=== PATIENT | male | born 1945 | race Caucasian/White ===

== ENCOUNTER 2016-07-28 11:27 | Inpatient (IN) ==
[2016-07-28] MEDS ORDERED: SODIUM CHLORIDE 0.9% 500 ML IV STA (12:30)
[2016-07-28] MEDS ORDERED: PANTOPRAZOLE 40 MG VIAL IV STA (12:30)
[2016-07-28 13:20] LABS: Basophils % 0.1 % (0.0-0.8); Eosinophils % 0.1 % (0.00-10.9); Hematocrit 38.2 VOL% (42.0-52.0); Immature Granulocytes % 0.5 %; Immature Granulocytes Absolute 0.04 #; Lymphocytes # 1.1 10*3/uL (1.4-4.0); Lymphocytes % 13.2 % (21.2-54.2); Mean Corpuscular Hemoglobin 33 PG (27-34); Mean Corpuscular Volume 95.5 FL (87-102); Mean Platelet Volume 9.2 FL (9.6-12.0); Monocytes % 13.1 % (1.7-12.7); Neutrophils # 5.8 10*3/uL (1.4-7.4); Platelet Count 161 T/CUMM (130-400); Red Cell Distribution Width 15.9 % (9.3-17.3); White Blood Count 7.9 T/CUMM (4-12)
[2016-07-28] MEDS ORDERED: PANTOPRAZOLE 40 MG VIAL IV ONE (13:33)
[2016-07-28 13:37] LABS: PT Patient Result 10.7 SECS
[2016-07-28 13:48] LABS: Albumin 3.6 G/DL (3.4-5.0); Bilirubin,Total 1.1 MG/DL (0.2-1.0); Calcium 9.2 MG/DL (8.5-10.1); Magnesium 2.6 MG/DL (1.8-2.4); Osmolality,Calculated 281.4 MOS/KG (273-304); Potassium 4.2 MMOL/L (3.5-5.1); Total Protein 7.2 G/DL (6.4-8.3)
--- NOTE | 2016-07-28 14:39 | Emergency Department Note ---
Adlaid Feng Hilary, am scribing for, and in the presence of, Maged Jimenez MD 12:24. Barbara Feng Phillip K, MD, personally performed the services described in this documentation, ascribed by iNda Cordoba in my presence, and it is both accurate and complete 439 . Arrival - Arrival Chief Complaint: GI Bleed/Rectal Stated Complaint: rectal bleeding ED Nursing Triage Note: pt was in the shower this am when he saw bright red bleeding from rectum Mode of Arrival: Ambulatory Limitations: No Limitations Source: Patient, RN Notes Reviewed - History of Present Illness HPI Narrative: Pt is a 71 y/o male presenting to the ED with c/o rectum bleeding which onset this AM. Pt states he was in the shower this morning when he noticed blood from his rectum after using his shower spray. Pt confirms bright red blood rectum bleeding but denies pain, hematochezia, diarrhea or abdominal pain. Pt has a PMHx of HTN, Hemorrhoids, polyps, Hep A, Liver Mets, Gallstones, Gastrointestinal CA, Colon CA. No other complaints or problems stated in the ED and pt denies ever having these symptoms before. Onset (ago): hour(s) Allergies/Adverse Reactions: Allergies Allergy/AdvReac Type Severity Reaction Status Date / Time No Known Allergies Allergy Verified 11/23/14 16:12 Home Medications: Home Medications Medication Instructions Recorded Confirmed Type Aspirin [Ecotrin] 325 mg PO DAILY 05/29/15 07/28/16 History Metoprolol Tartrate 25 mg PO DAILY 05/29/15 07/28/16 History Multivitamin [One Daily] 1 tablet PO DAILY 05/29/15 07/28/16 History Magnesium Chloride [Slow Mag] 64 mg PO DAILY 02/11/16 07/28/16 History Review of System - Review of System 12 point system: reviewed and no additional remarkable complaints except as stated - Review of System Constitutional: Absent: fever Gastrointestinal: Present: other (rectal bleeding). 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) No history of: Diabetes Mellitus (IDDM), Diabetes Mellitus (NIDDM), Dyslipidemia, Thyroid Disorder, Endocrine Cancer, Endocrine Problems Rheumatology: No history of;: Psoriasis, Rheumatoid Arthritis, Sjogrens, Systemic Lupus Erythematosus Respiratory: History of: Asthma ( CHILD), Bronchitis ( CHILD), Obstructive Sleep Apnea (C PAP), Pneumonia (May 2015) No history of: COPD, Intubation, Pulmonary Embolism, Pulmonary Hypertension, Lung Cancer, Respiratory Problems Renal: No history of: Renal (Kidney) Cancer, Dialysis, Renal Failure, Renal Problems Genitourinary: History of: Bladder Problem (STRETCHING BLADDER NECK), Prostate Problems (BPH) No history of: Kidney Stones, Recurring Urinary Tract Infections, Genitourinary Cancer, Problems Gastrointestinal: History of: Hemorrhoids, Hepatitis (Hep A 1963), Liver Problems (Liver Mets), Polyps (Few on colonoscopys), Gastrointestinal Cancer ( 2005), GI Problems (GALL STONES, sept 3- bile leaking again then set up for procedure 11/13/15) No history of: Bowel Obstruction, Clostridium Difficile, Crohn's Disease, Diverticulitis/ Diverticulosis, Esophageal Varices, GERD, Gastrointestinal Bleed , Hematochezia, Pancreatitis, Ulcerative Colitis Musculoskeletal: No history of: Amputation Hematology: No history of: Blood Transfusion Reaction Reproductive: No histroy: Penile Disorder, Sexually Transmitted Disease, Reproductive Cancer, Reproductive Problems Other: History of: Cancer (Colon CA with Liver Mets-Chemo Dr. Petit) No history of: Anesthesia Reactions, Anaphylaxis, Eczema, HIV, Malignant Hyperthermia, MRSA, Vancomycin-Resistant Enterococci, Skin Problems, Miscellaneous Medical Problems - Surgical History Cardiac Surgeries: Patient Denies: Femoral-Popliteal Bypass Graft, Cardiac Catheterization, Cardiac Surgery, Carotid Endarterectomy, Internal Defibrillator, Vascular Access Devices (12/26/15 Sched for Mediport Placement) Thoracic Surgeries: Patient denies;: Kidney (Renal Surgery), Lithotripsy, Nephrectomy, Organ Transplant, Lobectomy Neurologic Surgeries: Patient denies: Neurologic Surgery HEENT Surgeries: Surgical HX of: Tonsilectomy & Adenoidectomy (1953) Patient denies: Carotid Endarterectomy, Eye Surgery, Thyroid Surgery Abdominal Surgeries: Surgical HX of: Abdominal Surgery (RECTAL ADRENAL SURGERY, lower anterior resection 2005), Appendectomy (1966), Cholecystectomy (OPEN), Colonoscopy, EGD Patient denies: Gastric Bypass Surgery, Hernia Repair, Splenectomy Reproductive Surgeries: Surgical HX of;: Prostate Surgery (TRANS URETHRA 2015), Vasectomy (1975) Patient denies;: Breast Surgery, Cystoscopy, Genitourinary Surgery Orthopedic Surgeries: Patient denies;: Implanted Devices, Orthopedic Surgery, Spinal Surgery, Total Hip Replacement, Total Knee Replacement - Family History Family History: Reports;: Family Cancer (PARENTS), Family Heart Disease ( MATERNAL GRANDFATHER) Denies;: Family Anesthesia Reaction, Family Hypertension, Family Psychiatric Problems, Family Stroke - Social History Smoking Status: Former smoker Frequency of Alcohol Use: None Type of Drug Use: None Exam Vital Signs: Vital Signs Temperature 97.6 F 07/28/16 11:32 Pulse Rate 73 07/28/16 11:32 Respiratory Rate 18 07/28/16 11:32 Blood Pressure 150/93 07/28/16 11:32 O2 Sat by Pulse Oximetry 96 07/28/16 11:32 - General General appearance: alert, in no apparent distress - Head Head exam: Present: atraumatic, normocephalic - Eye Eye exam: Present: normal appearance, PERRL, EOMI - ENT ENT exam: Present: mucous membranes moist, TM's normal bilaterally. Absent: mucous membranes dry - Neck Neck exam: Present: full ROM, trachea midline. Absent: tenderness - Chest Chest inspection: Present: symmetric chest wall rise. Absent: tenderness - Respiratory Respiratory exam: Present: normal lung sounds bilaterally. Absent: respiratory distress - Cardiovascular Cardiovascular exam: Present: regular rate, normal rhythm, normal heart sounds. Absent: murmur, rubs, gallop - Abdominal Exam Abdominal exam: Present: soft, normal bowel sounds. Absent: distention, tenderness - Rectal Exam Rectal exam: Present: heme (+) stool - Extremities Exam Extremities exam: Present: full ROM. Absent: tenderness, pedal edema - Back Exam Back exam: Present: full ROM. Absent: tenderness - Neurological Exam Neurological exam: Present: alert, oriented X3, CN II-XII intact, motor sensory deficit - Psychiatric Psychiatric exam: Present: normal affect, normal mood - Skin Skin exam: Present: warm, dry, intact, normal color. Absent: rash Course Course Narrative: Patient discussed with Dr. Damaso Bear. We will admit to the hospitalist and they will consult. We will need to obtain serial H&H's. Results - Labs CBC & BMP: 07/28/16 13:13 07/28/16 13:13 Lab Results: I have reviewed the patients labs Labs: Laboratory Tests 07/28/16 13:13 WBC 7.9 RBC 4.00 Hgb 13.0 L Hct 38.2 L MPV 9.2 L Lymph % (Auto) 13.2 L [place] % (Auto) 13.1 H Lymph # (Auto) 1.1 L [place] # (Auto) 1.0 H Laboratory Tests 07/28/16 13:13 Sodium 140 Potassium 4.2 Chloride 103 Carbon Dioxide 27 BUN 20 H Glucose 107 H Magnesium 2.6 H Total Bilirubin 1.10 H Alkaline Phosphatase 163 H Globulin 3.6 H Albumin/Globulin Ratio 1.0 L Disposition Clinical Impression: Rectal bleeding, Metastatic colon cancer Case discussed with: patient, patient's family Disposition: Still a Patient Condition: Guarded Additional Instructions: Admit for further workup.
--- NOTE | 2016-07-28 15:34 | EKG Report ---
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
--- NOTE | 2016-07-28 15:46 | Hospitalist History & Physical ---
Assessment and Plan (1) Hematochezia Status: Acute Assessment and plan: Differential is huge for patient with painless hematochezia including diverticulosis and hemorrhoids or recurrence of colon cancer. will watch H&H consult Dr. Flaco Bear Current Visit: Yes (2) Anemia Status: Acute Assessment and plan: Stable hemoglobin hematocrit but will keep monitoring Current Visit: Yes (3) Edema Status: Acute Assessment and plan: Patient has edema bilateral lower extremities with normal albumin level I will get a venous Dopplers due to his history of cancer there is no dyspnea reported no chest pain Current Visit: Yes History of Present Illness History of present illness: Mr. Kiser is a 71 year old male with history of hypertension and colorectal cancer. He had a 6 cm colon resection with radiation daily and chemotherapy in 2005 when it was initially diagnosed. He had a recurrence in 2011 with the right adrenal metastasis. Last year he developed jaundice and at that time ERCP and sphincterotomy and biliary stent placement. He was at that time diagnosed to have liver metastasis he has been on chemotherapy. Patient has been followed by Dr. Petit in his visual aid expert Dr. Flaco Bear.This morning patient noted rectal bleeding while he was in shower there is no associated abdominal or rectal pain. There is no associated nausea vomiting. He does report some loose stool recently no associated fever. He was seen in the ER and noted to have a stable hemodynamics with blood pressure 150/93 pulse 70/min. His hemoglobin is 13 hematocrit 38.2 which is stable compared to one in April 2016. We were consulted by the ER for admission and he will be aadmitted to the [facility] floor. Home Medications Medication Instructions Recorded Confirmed Type Aspirin [Ecotrin] 325 mg PO DAILY 05/29/15 07/28/16 History Metoprolol Tartrate 25 mg PO DAILY 05/29/15 07/28/16 History Multivitamin [One Daily] 1 tablet PO DAILY 05/29/15 07/28/16 History Magnesium Chloride [Slow Mag] 64 mg PO DAILY 02/11/16 07/28/16 History Allergies Allergy/AdvReac Type Severity Reaction Status Date / Time No Known Allergies Allergy Verified 11/23/14 16:12 Medical,Surgical,& Family Hx - Medical History Cardio: History of: Cerebrovascular Disease (HX [address] SCHERER), Hypertension No history of: Aneurysm, Cardiac Dysrhythmia, Congenital Heart Disease, CHF, CAD, [place], Pacemaker, PVD, Valvular Heart Disease, Cardiovascular Problems Neurology: History of: Migraine (occular), Vertigo No history of: Seizures HEENT: History of: Dental Problems (BRIDGE FRONT) No history of: Ear Problem, Eye Problem, Glaucoma, Oral Cancer, HEENT Problems Endocrine: History of: 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) No history of: Diabetes Mellitus (IDDM), Diabetes Mellitus (NIDDM), Dyslipidemia, Thyroid Disorder, Endocrine Cancer, Endocrine Problems Rheumatology: No history of;: Psoriasis, Rheumatoid Arthritis, Sjogrens, Systemic Lupus Erythematosus Respiratory: History of: Asthma ( CHILD), Bronchitis ( CHILD), Obstructive Sleep Apnea (C PAP), Pneumonia (May 2015) No history of: COPD, Intubation, Pulmonary Embolism, Pulmonary Hypertension, Lung Cancer, Respiratory Problems Renal: No history of: Renal (Kidney) Cancer, Dialysis, Renal Failure, Renal Problems Genitourinary: History of: Bladder Problem (STRETCHING BLADDER NECK), Prostate Problems (BPH) No history of: Kidney Stones, Recurring Urinary Tract Infections, Genitourinary Cancer, Problems Gastrointestinal: History of: Hemorrhoids, Hepatitis (Hep A 1963), Liver Problems (Liver Mets), Polyps (Few on colonoscopys), Gastrointestinal Cancer ( 2005), GI Problems (GALL STONES, sept 3- bile leaking again then set up for procedure 11/13/15) No history of: Bowel Obstruction, Clostridium Difficile, Crohn's Disease, Diverticulitis/ Diverticulosis, Esophageal Varices, GERD, Gastrointestinal Bleed , Hematochezia, Pancreatitis, Ulcerative Colitis Musculoskeletal: No history of: Amputation Hematology: No history of: Blood Transfusion Reaction Reproductive: No histroy: Penile Disorder, Sexually Transmitted Disease, Reproductive Cancer, Reproductive Problems Other: History of: Cancer (Colon CA with Liver Mets-Chemo Dr. Petit) No history of: Anesthesia Reactions, Anaphylaxis, Eczema, HIV, Malignant Hyperthermia, MRSA, Vancomycin-Resistant Enterococci, Skin Problems, Miscellaneous Medical Problems - Surgical History Cardiac Surgeries: Patient Denies: Femoral-Popliteal Bypass Graft, Cardiac Catheterization, Cardiac Surgery, Carotid Endarterectomy, Internal Defibrillator, Vascular Access Devices (12/26/15 Sched for Mediport Placement) Thoracic Surgeries: Patient denies;: Kidney (Renal Surgery), Lithotripsy, Nephrectomy, Organ Transplant, Lobectomy Neurologic Surgeries: Patient denies: Neurologic Surgery HEENT Surgeries: Surgical HX of: Tonsilectomy & Adenoidectomy (1953) Patient denies: Carotid Endarterectomy, Eye Surgery, Thyroid Surgery Abdominal Surgeries: Surgical HX of: Abdominal Surgery (RECTAL ADRENAL SURGERY, lower anterior resection 2005), Appendectomy (1966), Cholecystectomy (OPEN), Colonoscopy, EGD Patient denies: Gastric Bypass Surgery, Hernia Repair, Splenectomy Reproductive Surgeries: Surgical HX of;: Prostate Surgery (TRANS URETHRA 2015), Vasectomy (1975) Patient denies;: Breast Surgery, Cystoscopy, Genitourinary Surgery Orthopedic Surgeries: Patient denies;: Implanted Devices, Orthopedic Surgery, Spinal Surgery, Total Hip Replacement, Total Knee Replacement - Family History Family History: Reports;: Family Cancer (PARENTS), Family Heart Disease ( MATERNAL GRANDFATHER) Denies;: Family Anesthesia Reaction, Family Hypertension, Family Psychiatric Problems, Family Stroke - Social History Smoking Status: Former smoker Frequency of Alcohol Use: None Type of Drug Use: None Review of systems: Comprehensive review of system was done and negative unless mentioned in the HPI Exam - Constitutional Vitals: Period Temp Pulse Resp BP Sys/Diamond Pulse Ox Last 24 Hr 97.6 F 73 18 150/93 96 General appearance: no acute distress, over weight - Head Head exam: Present: normal inspection, normocephalic, atraumatic - Eye Eye exam: Present: EOMI. Absent: conjunctival injection Pupils: Present: GODWIN, normal accommodation - Neck Neck exam: Present: normal inspection, other (Supple) - Respiratory Respiratory exam: Present: clear to auscultation bilaterally. Absent: rhonchi, stridor - Cardiovascular Cardiovascular exam: Present: regular rate and rhythm. Absent: tachycardia - GI/Abdominal GI/Abdominal exam: Present: normal bowel sounds, soft (Obese). Absent: distended, mass, tenderness - Extremities Exam Extremities exam: Present: normal inspection, edema (Mild edema) - Neurological Exam Neurological exam: Present: alert, oriented X3 - Skin Skin exam: Present: normal color Results - Labs CBC & BMP: 07/28/16 13:13 07/28/16 13:13 Lab Results: I have reviewed the past 24 hour labs
[2016-07-28] MEDS ORDERED: ONDANSETRON 4 MG/2 ML VIAL IV PRN (15:55)
[2016-07-28] MEDS ORDERED: ACETAMINOPHEN 325 MG TABLET PO PRN (15:55)
[2016-07-28] MEDS ORDERED: ZALEPLON 5 MG CAPSULE PO PRN (15:55)
--- NOTE | 2016-07-28 17:20 | Ultrasound Report ---
US venous doppler LE BI Indication: Lower extremity swelling and pain. Comparison: None. Technique: Using a transcutaneous probe, grayscale, spectral Doppler, and color Doppler images of the bilateral lower extremity venous structures were captured and stored. Grayscale images prior to and following compression were obtained. Interrogated venous structures include the bilateral common femoral vein, superficial femoral vein (proximal, mid, and distal), and popliteal vein. Findings: There is no evidence of thrombus within the interrogated venous structures. the interrogated venous segments demonstrate presence of both color flow and spectral flow. Impression: 1. No evidence of venous thrombosis. 07/28/2016 5:17 PM PROCEDURE INTERPRETED AT [facility] DEPARTMENT OF RADIOLOGY Final Report Signed by: Dr. Ji Garibay
[2016-07-28] MEDS: DEXTROSE 5% NACL 0.45% 1,000 ML IV SCH (17:24)
[2016-07-29] MEDS: DEXTROSE 5% NACL 0.45% 1,000 ML IV SCH ×2 (06:09→19:45)
[2016-07-29 06:24] LABS: Eosinophils # 0.1 10*3/uL (0.0-0.87); Eosinophils % 1.8 % (0.00-10.9); Hematocrit 34.7 VOL% (42.0-52.0); Hemoglobin 11.7 GM/DL (14.0-18.0); Immature Granulocytes % 0.3 %; Immature Granulocytes Absolute 0.01 #; Lymphocytes # 1.1 10*3/uL (1.4-4.0); Lymphocytes % 26.4 % (21.2-54.2); Mean Corpuscular HGB Conc 33.7 GM/DL (32-36); Mean Corpuscular Hemoglobin 32 PG (27-34); Mean Corpuscular Volume 95.9 FL (87-102); Mean Platelet Volume 9.4 FL (9.6-12.0); Monocytes # 0.5 10*3/uL (0.11-0.8); Monocytes % 11.3 % (1.7-12.7); Neutrophils # 2.4 10*3/uL (1.4-7.4); Neutrophils % 59.2 % (38.7-73.9); Platelet Count 139 T/CUMM (130-400); Red Blood Count 3.62 MC/CUMM (3.8-5.5); Red Cell Distribution Width 15.9 % (9.3-17.3)
--- NOTE | 2016-07-29 08:59 | Oncology History&Physical ---
History of Present Illness History of present illness: Mr. Kiser is a 71 year old male that I have been following and who I last saw on July 22, 2016. He has a history of metastatic colorectal cancer that was initially diagnosed August 11, 2005. It recurred October 06, 2011 and he has been treated by me since that time. He was also seen at [facility]. He had a PET scan that was done there on December 18, 2015 that demonstrated multiple areas of lung and liver involvement. However, he had a repeat PET scan done here on July 20, 2016 that is negative for any evidence of metastatic disease presently. His colon cancer is K-elise wild type. He would qualify for targeted therapy, possibly with irinotecan and cetuximab or Panitumumab, nivolumab and Pembrolizumab. He was admitted with relatively heavy bright red rectal bleeding. He had not reported this within the last few months. He is currently on Folfiri. He was actually given his last dose of chemotherapy beginning July 27 and it actually completed this morning. We are attaching my last office progress note to his chart. He has stopped bleeding at this point. Lab work on the day of admission included a white cell count of 7900 with a hemoglobin of 13.0 and a platelet count of 161,000. Blood work this morning included a white cell count of 4000 with a hemoglobin of 11.7 and a platelet count of 139,000. He had a normal INR on admission. His comprehensive metabolic profile on admission was very nearly normal with a slight elevation of the total bilirubin to 1.1 with an alkaline phosphatase 163. He is fully oriented and alert and does not appear to be in any acute distress this morning. I agree with consulting Dr. Bear and considering the patient for colonoscopy since we need to know if he has any lesions within the colon that might be actively bleeding or if this could be a bleeding source of some other type. Home Medications Medication Instructions Recorded Confirmed Type Aspirin [Ecotrin] 325 mg PO DAILY 05/29/15 07/28/16 History Metoprolol Tartrate 25 mg PO DAILY 05/29/15 07/28/16 History Multivitamin [One Daily] 1 tablet PO DAILY 05/29/15 07/28/16 History Magnesium Chloride [Slow Mag] 64 mg PO DAILY 02/11/16 07/28/16 History Allergies Allergy/AdvReac Type Severity Reaction Status Date / Time No Known Allergies Allergy Verified 11/23/14 16:12 Medical,Surgical,& Family Hx - Medical History Cardio: History of: Cerebrovascular Disease (HX [address] SCHERER), Hypertension No history of: Aneurysm, Cardiac Dysrhythmia, Congenital Heart Disease, CHF, CAD, [place], Pacemaker, PVD, Valvular Heart Disease, Cardiovascular Problems Neurology: History of: Migraine (occular), Vertigo No history of: Seizures HEENT: History of: Dental Problems (BRIDGE FRONT) No history of: Ear Problem, Eye Problem, Glaucoma, Oral Cancer, HEENT Problems Endocrine: History of: 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) No history of: Diabetes Mellitus (IDDM), Diabetes Mellitus (NIDDM), Dyslipidemia, Thyroid Disorder, Endocrine Cancer, Endocrine Problems Rheumatology: No history of;: Psoriasis, Rheumatoid Arthritis, Sjogrens, Systemic Lupus Erythematosus Respiratory: History of: Asthma ( CHILD), Bronchitis ( CHILD), Obstructive Sleep Apnea (C PAP), Pneumonia (May 2015) No history of: COPD, Intubation, Pulmonary Embolism, Pulmonary Hypertension, Lung Cancer, Respiratory Problems Renal: No history of: Renal (Kidney) Cancer, Dialysis, Renal Failure, Renal Problems Genitourinary: History of: Bladder Problem (STRETCHING BLADDER NECK), Prostate Problems (BPH) No history of: Kidney Stones, Recurring Urinary Tract Infections, Genitourinary Cancer, Problems Gastrointestinal: History of: Hemorrhoids, Hepatitis (Hep A 1963), Liver Problems (Liver Mets), Polyps (Few on colonoscopys), Gastrointestinal Cancer ( 2005), GI Problems (GALL STONES, sept 3- bile leaking again then set up for procedure 11/13/15) No history of: Bowel Obstruction, Clostridium Difficile, Crohn's Disease, Diverticulitis/ Diverticulosis, Esophageal Varices, GERD, Gastrointestinal Bleed , Hematochezia, Pancreatitis, Ulcerative Colitis Musculoskeletal: No history of: Amputation Hematology: No history of: Blood Transfusion Reaction Reproductive: No histroy: Penile Disorder, Sexually Transmitted Disease, Reproductive Cancer, Reproductive Problems Other: History of: Cancer (Colon CA with Liver Mets-Chemo Dr. Petit) No history of: Anesthesia Reactions, Anaphylaxis, Eczema, HIV, Malignant Hyperthermia, MRSA, Vancomycin-Resistant Enterococci, Skin Problems, Miscellaneous Medical Problems - Surgical History Cardiac Surgeries: Patient Denies: Femoral-Popliteal Bypass Graft, Cardiac Catheterization, Cardiac Surgery, Carotid Endarterectomy, Internal Defibrillator, Vascular Access Devices (12/26/15 Sched for Mediport Placement) Thoracic Surgeries: Patient denies;: Kidney (Renal Surgery), Lithotripsy, Nephrectomy, Organ Transplant, Lobectomy Neurologic Surgeries: Patient denies: Neurologic Surgery HEENT Surgeries: Surgical HX of: Tonsilectomy & Adenoidectomy (1953) Patient denies: Carotid Endarterectomy, Eye Surgery, Thyroid Surgery Abdominal Surgeries: Surgical HX of: Abdominal Surgery (RECTAL ADRENAL SURGERY, lower anterior resection 2005), Appendectomy (1966), Cholecystectomy (OPEN), Colonoscopy, EGD Patient denies: Gastric Bypass Surgery, Hernia Repair, Splenectomy Reproductive Surgeries: Surgical HX of;: Prostate Surgery (TRANS URETHRA 2015), Vasectomy (1975) Patient denies;: Breast Surgery, Cystoscopy, Genitourinary Surgery Orthopedic Surgeries: Patient denies;: Implanted Devices, Orthopedic Surgery, Spinal Surgery, Total Hip Replacement, Total Knee Replacement - Family History Family History: Reports;: Family Cancer (PARENTS), Family Heart Disease ( MATERNAL GRANDFATHER) Denies;: Family Anesthesia Reaction, Family Hypertension, Family Psychiatric Problems, Family Stroke - Social History Smoking Status: Former smoker Frequency of Alcohol Use: None Type of Drug Use: None Exam - Constitutional Vitals: Period Temp Pulse Resp BP Sys/Diamond Pulse Ox Last 24 Hr 97.6 F-99.4 F 59-69 18-20 106-155/55-79 94-96 Results - Labs CBC & BMP: 07/29/16 05:25 07/28/16 13:13 Quality Measures - VTE Contraindication to Pharmacological VTE Prophylaxis: Active Bleeding
[2016-07-29] MEDS: PANTOPRAZOLE 40 MG TABLET PO SCH (10:31)
[2016-07-29] MEDS: METOPROLOL TARTRATE 25 MG TABLET PO SCH (10:31)
[2016-07-29] MEDS: MULTIVITAMIN (CENTRUM) TABLET PO SCH (10:31)
--- NOTE | 2016-07-29 10:55 | Gastrointestinal Consult Note ---
<SusantrinhAlyssa Florinda - Last Filed: 07/29/16 10:46> Assessment and Plan (1) Lower GI bleed Status: Acute Assessment and plan: 07/29-sudden onset bright red rectal bleeding on yesterday without associated symptoms. Hemoglobin down slightly from 13 on admission to 11.7 today. No further bleeding since yesterday. History of colon cancer with resection in 2005, adrenalectomy in 2011, followed by anal fissure closure in 2011. Unable to locate recent colonoscopy records. Change to clear liquid diet. Monitor serial H&H. Plan an addendum to follow by Dr. Bear. Current Visit: Yes History of Present Illness Chief complaint: Rectal bleeding History of present illness: Mr. Kiser is a 71 year old male who presented to the hospital with onset of bright red rectal bleeding. Patient states that he was in his usual state of health until yesterday morning. He states that he was in the shower yesterday morning when he had a sudden onset of bright red rectal bleeding. He states that he felt like it was a moderate amount of blood initially. Shortly after this he had a bowel movement and he reports of bright red blood mixed in with the stool at that time. He states later that afternoon he had another bowel movement with a very small amount of blood noted as well and reports the stool to look somewhat dark. Patient denies any abdominal pain associated with this other than some mild cramping last night. Denies any other associated symptoms with this including nausea or vomiting. Patient presented to the emergency room for further evaluation. He has a history of colon cancer initially diagnosed in 2005 which was resected and he underwent chemotherapy. 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 Brunson. He also underwent a sphincterotomy for anal fissure in 2011. He has been followed by Dr. Petit since this time. He is currently on chemotherapy treatment which he just completed an infusion this morning. He is also followed at [facility]. He had a PET scan done 2015 which showed liver and lung metastasis however a recent PET scan several weeks ago showed no evidence of metastasis at this time. His hemoglobin on July 22 Dr. Petit's office was noted to be 12.8. On admission this was 13 and is trended downward today at 11.7. He denies no further bleeding since admission. He denies any upper GI symptoms including nausea, vomiting, epigastric pain, dysphagia, or GERD. Denies any NSAID use. Denies any recent weight loss, fever, chills or night sweats. He also has a history of 4 ERCPs over the last year for a bile leak with stent replacement however the stent was removed in May of this year with no further evidence of significant stricture or bile leak. Patient states that he has had fairly recent repeat colonoscopy in the last year however unable to find any information in our facility database regarding this. Home Medications Medication Instructions Recorded Confirmed Type Aspirin [Ecotrin] 325 mg PO DAILY 05/29/15 07/28/16 History Metoprolol Tartrate 25 mg PO DAILY 05/29/15 07/28/16 History Multivitamin [One Daily] 1 tablet PO DAILY 05/29/15 07/28/16 History Magnesium Chloride [Slow Mag] 64 mg PO DAILY 02/11/16 07/28/16 History Allergies Allergy/AdvReac Type Severity Reaction Status Date / Time No Known Allergies Allergy Verified 11/23/14 16:12 Medical,Surgical,& Family Hx - Medical History Cardio: History of: Cerebrovascular Disease (HX [address] SCHERER), Hypertension No history of: Aneurysm, Cardiac Dysrhythmia, Congenital Heart Disease, CHF, CAD, [place], Pacemaker, PVD, Valvular Heart Disease, Cardiovascular Problems Neurology: History of: Migraine (occular), Vertigo No history of: Seizures HEENT: History of: Dental Problems (BRIDGE FRONT) No history of: Ear Problem, Eye Problem, Glaucoma, Oral Cancer, HEENT Problems Endocrine: History of: 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) No history of: Diabetes Mellitus (IDDM), Diabetes Mellitus (NIDDM), Dyslipidemia, Thyroid Disorder, Endocrine Cancer, Endocrine Problems Rheumatology: No history of;: Psoriasis, Rheumatoid Arthritis, Sjogrens, Systemic Lupus Erythematosus Respiratory: History of: Asthma ( CHILD), Bronchitis ( CHILD), Obstructive Sleep Apnea (C PAP), Pneumonia (May 2015) No history of: COPD, Intubation, Pulmonary Embolism, Pulmonary Hypertension, Lung Cancer, Respiratory Problems Renal: No history of: Renal (Kidney) Cancer, Dialysis, Renal Failure, Renal Problems Genitourinary: History of: Bladder Problem (STRETCHING BLADDER NECK), Prostate Problems (BPH) No history of: Kidney Stones, Recurring Urinary Tract Infections, Genitourinary Cancer, Problems Gastrointestinal: History of: Hemorrhoids, Hepatitis (Hep A 1963), Liver Problems (Liver Mets), Polyps (Few on colonoscopys), Gastrointestinal Cancer ( 2005), GI Problems (GALL STONES, sept 3- bile leaking again then set up for procedure 11/13/15) No history of: Bowel Obstruction, Clostridium Difficile, Crohn's Disease, Diverticulitis/ Diverticulosis, Esophageal Varices, GERD, Gastrointestinal Bleed , Hematochezia, Pancreatitis, Ulcerative Colitis Musculoskeletal: No history of: Amputation Hematology: No history of: Blood Transfusion Reaction Reproductive: No histroy: Penile Disorder, Sexually Transmitted Disease, Reproductive Cancer, Reproductive Problems Other: History of: Cancer (Colon CA with Liver Mets-Chemo Dr. Petit) No history of: Anesthesia Reactions, Anaphylaxis, Eczema, HIV, Malignant Hyperthermia, MRSA, Vancomycin-Resistant Enterococci, Skin Problems, Miscellaneous Medical Problems - Surgical History Cardiac Surgeries: Patient Denies: Femoral-Popliteal Bypass Graft, Cardiac Catheterization, Cardiac Surgery, Carotid Endarterectomy, Internal Defibrillator, Vascular Access Devices (12/26/15 Sched for Mediport Placement) Thoracic Surgeries: Patient denies;: Kidney (Renal Surgery), Lithotripsy, Nephrectomy, Organ Transplant, Lobectomy Neurologic Surgeries: Patient denies: Neurologic Surgery HEENT Surgeries: Surgical HX of: Tonsilectomy & Adenoidectomy (1953) Patient denies: Carotid Endarterectomy, Eye Surgery, Thyroid Surgery Abdominal Surgeries: Surgical HX of: Abdominal Surgery (RECTAL ADRENAL SURGERY, lower anterior resection 2005), Appendectomy (1966), Cholecystectomy (OPEN), Colonoscopy, EGD Patient denies: Gastric Bypass Surgery, Hernia Repair, Splenectomy Reproductive Surgeries: Surgical HX of;: Prostate Surgery (TRANS URETHRA 2015), Vasectomy (1975) Patient denies;: Breast Surgery, Cystoscopy, Genitourinary Surgery Orthopedic Surgeries: Patient denies;: Implanted Devices, Orthopedic Surgery, Spinal Surgery, Total Hip Replacement, Total Knee Replacement - Family History Family History: Reports;: Family Cancer (PARENTS), Family Heart Disease ( MATERNAL GRANDFATHER) Denies;: Family Anesthesia Reaction, Family Hypertension, Family Psychiatric Problems, Family Stroke - Social History Smoking Status: Former smoker Frequency of Alcohol Use: None Type of Drug Use: None 12 point system: reviewed and no additional remarkable complaints except as stated - Constitutional Constitutional: Present: as per HPI - EENT Eyes: Present: as per HPI Ears: Present: as per HPI Nose, mouth and throat: Present: as per HPI - Cardiovascular Cardiovascular: Present: as per HPI - Respiratory Respiratory: Present: as per HPI - Gastrointestinal Gastrointestinal: Present: as per HPI, hematochezia - Genitourinary Genitourinary: Present: as per HPI - Musculoskeletal Musculoskeletal: Present: as per HPI - Neurological Neurological: Present: as per HPI - Psychiatric Psychiatric: Present: as per HPI - Endocrine Endocrine: Present: as per HPI - Hematologic/Lymphatic Hematologic/Lymphatic: Present: as per HPI Exam - Constitutional Vitals: Period Temp Pulse Resp BP Sys/Diamond Pulse Ox Last 24 Hr 97.6 F-99.4 F 59-69 18-20 106-155/55-79 94-96 General appearance: no acute distress, over weight - Head Head exam: Present: normal inspection, normocephalic - Eye Eye exam: Present: other (Lids and conjunctive are unremarkable). Absent: scleral icterus - ENT ENT exam: Present: normal exam, normal oropharynx - Neck Neck exam: Present: normal inspection - Respiratory Respiratory exam: Present: clear to auscultation bilaterally. Absent: rales, rhonchi, wheezes - Cardiovascular Cardiovascular exam: Present: regular rate and rhythm. Absent: diastolic murmur , JVD, systolic murmur - GI/Abdominal GI/Abdominal exam: Present: normal bowel sounds, soft. Absent: ascites, distended, mass, organomegaly, tenderness - Extremities Exam Extremities exam: Present: normal inspection, full ROM - Back Exam Back exam: Present: normal inspection - Neurological Exam Neurological exam: Present: alert, oriented X3 - Psychiatric Psychiatric exam: Present: normal affect, normal mood - Skin Skin exam: Present: normal color, warm, dry Results - Labs CBC & BMP: 07/29/16 05:25 07/28/16 13:13 Lab Results: I have reviewed the past 24 hour labs Quality Measures - VTE Contraindication to Pharmacological VTE Prophylaxis: Active Bleeding <Flaco Bear - Last Filed: 07/30/16 10:18> History of Present Illness History of present illness: Mr. Kiser is a 71 year old male Exam - Constitutional Vitals: Period Temp Pulse Resp BP Sys/Diamond Pulse Ox Last 24 Hr 96.0 F-98.9 F 60-75 16-20 125-158/54-075 92-98 Results - Labs CBC & BMP: 07/30/16 04:00 07/30/16 07:00
[2016-07-29] MEDS ORDERED: BISACODYL 5 MG TABLET PO ONE (12:00)
[2016-07-29] MEDS ORDERED: POLYETHYLENE GLYCOL POWDER 255 GM BOTTLE PO ONE (14:00)
--- NOTE | 2016-07-29 16:09 | Hospitalist Progress Note ---
Assessment and Plan (1) Hematochezia Status: Acute Assessment and plan: Although patient symptom has resolved due to his significant history Dr. Bear has decided to do his colonoscopy tomorrow we will follow the reading and recommendation from Dr. Bear. Patient was also seen by Dr. Petit Current Visit: Yes (2) Anemia Status: Acute Assessment and plan: Only mild drop of hematocrit since yesterday we will follow morning labs Current Visit: Yes (3) Edema Status: Acute Assessment and plan: Patient has edema bilateral lower extremities with normal albumin level I will get a venous Dopplers due to his history of cancer there is no dyspnea reported no chest pain Current Visit: Yes Hospitalist: Subjective Interval history: Patient admitted with the rectal bleeding history of colorectal cancer in the past. Overall clinically stable has no acute complaint. He did have one mild bleeding with the bowel movement yesterday evening. No bleeding since then no abdominal pain or rectal pain was seen by the Dr. Bear and plan to do colonoscopy tomorrow patient is being prepared Exam - Constitutional Vitals: Period Temp Pulse Resp BP Sys/Diamond Pulse Ox Last 24 Hr 97.6 F-99.4 F 59-69 18-20 106-155/55-79 93-96 General appearance: no acute distress, over weight - Respiratory Respiratory exam: Present: clear to auscultation bilaterally. Absent: rhonchi, stridor - Cardiovascular Cardiovascular exam: Present: regular rate and rhythm. Absent: tachycardia - GI/Abdominal GI/Abdominal exam: Present: normal bowel sounds, soft (Obese). Absent: distended, mass, tenderness - Extremities Exam Extremities exam: Present: normal inspection, edema (Mild edema) - Neurological Exam Neurological exam: Present: alert, oriented X3 Results - Labs CBC & BMP: 07/29/16 05:25 07/28/16 13:13 Lab Results: I have reviewed the past 24 hour labs Quality Measures - VTE Contraindication to Pharmacological VTE Prophylaxis: Active Bleeding
[2016-07-29] MEDS ORDERED: MAGNESIUM CITRATE 300 ML BOTTLE PO ONE (21:00)
[2016-07-30 06:46] LABS: Basophils # 0.1 10*3/uL (0.0-0.2); Basophils % 1.5 % (0.0-0.8); Eosinophils # 0.2 10*3/uL (0.0-0.87); Eosinophils % 5.2 % (0.00-10.9); Hematocrit 34.5 VOL% (42.0-52.0); Hemoglobin 11.7 GM/DL (14.0-18.0); Immature Granulocytes % 0.3 %; Immature Granulocytes Absolute 0.01 #; Lymphocytes # 0.7 10*3/uL (1.4-4.0); Lymphocytes % 21.2 % (21.2-54.2); Mean Corpuscular HGB Conc 33.9 GM/DL (32-36); Mean Corpuscular Hemoglobin 33 PG (27-34); Mean Corpuscular Volume 97.5 FL (87-102); Mean Platelet Volume 9.4 FL (9.6-12.0); Monocytes # 0.2 10*3/uL (0.11-0.8); Monocytes % 7.4 % (1.7-12.7); Neutrophils # 2.1 10*3/uL (1.4-7.4); Neutrophils % 64.4 % (38.7-73.9); Platelet Count 148 T/CUMM (130-400); Red Blood Count 3.54 MC/CUMM (3.8-5.5); Red Cell Distribution Width 15.9 % (9.3-17.3); White Blood Count 3.3 T/CUMM (4-12)
[2016-07-30 07:49] LABS: Calcium 8.5 MG/DL (8.5-10.1); Osmolality,Calculated 281.3 MOS/KG (273-304); Potassium 4.1 MMOL/L (3.5-5.1)
[2016-07-30] MEDS ORDERED: HEPARIN LOCK FLUSH 500 UNIT/5 ML SYRINGE IV ONE ×2 (09:14→15:02)
[2016-07-30] MEDS ORDERED: FILGRASTIM-SNDZ 300 MCG/0.5 ML SYRINGE SUBCUT ONE (09:32)
[2016-07-30] MEDS ORDERED: PROPOFOL 200 MG/20 ML VIAL IV ONE (10:50)
[2016-07-30] MEDS ORDERED: LIDOCAINE 1% 5 ML VIAL ONE (10:50)
--- NOTE | 2016-07-30 12:15 | Oncology Progress Note ---
Oncology Subjective PN Interval history: This patient was admitted with acute GI bleeding and significant bright red blood per rectum while he was showering. He is on palliative chemotherapy for metastatic colon cancer that has responded surprisingly well to treatment. His blood counts are changing. His white cell count has fallen to 3300 today with an absolute neutrophil count of 2100. His hemoglobin is stable at 11.7 but this is down from 13.0 on admission. His platelet count is normal at 148,000. I discussed the patient's case with Dr. Bear yesterday. He will undergo colonoscopy today so that we can determine whether this is malignancy causing his GI bleed or some other source causing the GI bleed. Note: The patient is being discharged today and has follow-up with me in a week. Exam - Constitutional Vitals: Period Temp Pulse Resp BP Sys/Diamond Pulse Ox Last 24 Hr 96.0 F-98.9 F 60-75 20-20 125-156/54-80 93-98 Results - Labs CBC & BMP: 07/30/16 04:00 07/30/16 07:00 Quality Measures - VTE Contraindication to Pharmacological VTE Prophylaxis: Active Bleeding
--- NOTE | 2016-07-30 12:22 | Event Note ---
Patient seen and examined on July 29 at 12:30 PM. Unfortunately the computer would not allow me access to this note yesterday and will not allow me to cosign the GI progress note authored by Alyssa NICHOLSON for the consultation record from July 29. Sudden onset of rectal bleeding likely hemorrhoidal source. He had a colonoscopy done in 1999 1610 diverticulosis was unremarkable. He continues on treatment for metastatic colon cancer. Will plan colonoscopy on July 30 and if negative consider EGD as well. He is hemodynamically stable has had no further bleeding since admission. Abdomen soft nondistended nontender Agree with additional history physical findings per Alyssa NICHOLSON GI consult note from July 29
--- NOTE | 2016-07-30 12:23 | Operative Note ---
Date of procedure: 07/30/16 Pre-op diagnosis: GI bleed of unclear etiology Procedure: EGD 71-year-old gentleman with rectal bleeding history of colon cancer with rectal bleeding no definitive source of bleeding found on colonoscopy now for upper endoscopy. Informed consent was obtained He was sedated with MAC anesthesia per anesthesia protocol. Placed left lateral decubitus position. The Olympus flexible video upper endoscope is her lower cavity direct vision the esophagus intubated. Findings: Esophagus-normal proximal mid esophageal mucosa distal esophagus small to moderate hiatal hernia no significant Palm's change, varices or erosive esophagitis was identified. Stomach-normal insufflation normal mucosa to direct retroflexed views of the blood body fundus cardia and antrum the stomach. Pylorus-normal Duodenum-normal for the bulb duodenum to the proximal jejunum no bloodstained mucosa no AVMs were identified. The procedure terminated patient's discharge recovery in good condition. Postop diagnosis: 1. Gastroesophageal reflux disease-continue PPI treatment and antireflux precautions. 2. Suspected GI bleed episode was related to either hemorrhoids or diverticulosis and would manage expectantly at this time. No evidence of recurrent malignancy seen. If bleeding recurs consider GI bleeding scan to attempt to localize. For thoroughness we will get a small bowel series to exclude small bowel pathology particular in light of his metastatic processes. I will be out of town until next Wednesday call coverage if needed. Anesthesia: MAC Surgeon / Physician: Flaco Bear Estimated blood loss: none Specimens: none sent Condition: stable Disposition: post procedure unit Results - Labs CBC & BMP: 07/30/16 04:00 07/30/16 07:00 Discharge Plan - Discharge Medications No Action Aspirin [Ecotrin] 325 mg PO DAILY Multivitamin [One Daily] 1 tablet PO DAILY Metoprolol Tartrate 25 mg PO DAILY Magnesium Chloride [Slow Mag] 64 mg PO DAILY - Follow Up or Referral - Forms/Instructions
--- NOTE | 2016-07-30 12:23 | Operative Note ---
Date of procedure: 07/30/16 Pre-op diagnosis: Rectal bleeding with history of colon cancer Procedure: Colonoscopy 71-year-old gentleman completed prior history of colon cancer now for colonoscopy to further evaluate. Informed symptoms obtained patient. He was sedated with MAC anesthesia per anesthesia protocol. Withdrawal time 7 minutes Prep fair to good. Digital exam revealed no rectal masses normal prostate the Olympus flexible video colonoscope [place] canal advanced directives below the cecum identify obvious ago valve appendiceal orifice. Findings: Cecum-normal Terminal ileum-normal Ascending colon-diverticulosis no active bleeding Transverse colon diverticulosis no active bleeding Descending colon-diverticulosis no active bleeding Sigmoid colon-moderate diverticulosis no active bleeding Rectum normal to direct retroflexed views. Internal hemorrhoids were observed but not bleeding. The procedure terminated placed our procedure well. Postop diagnosis: 1. Diverticulosis coli-maintain adequate fiber and fluid intake 2. Internal hemorrhoids continue symptomatic treatment. Anesthesia: MAC Surgeon / Physician: Flaco Bear Estimated blood loss: none Specimens: none sent Condition: stable Disposition: post procedure unit Results - Labs CBC & BMP: 07/30/16 04:00 07/30/16 07:00 Discharge Plan - Discharge Medications No Action Aspirin [Ecotrin] 325 mg PO DAILY Multivitamin [One Daily] 1 tablet PO DAILY Metoprolol Tartrate 25 mg PO DAILY Magnesium Chloride [Slow Mag] 64 mg PO DAILY - Follow Up or Referral - Forms/Instructions
--- NOTE | 2016-07-30 12:23 | History and Physical Update ---
History and Physical Update - Physical Exam Mental Status: alert and oriented Heart: regular rate and rhythm Lung: clear to auscultation Abdomen: within normal limits Vitals: within normal limits
--- NOTE | 2016-07-30 12:24 | Discharge Summary ---
Hospital Course - Hospital Course Hospital Course: Mr. Kiser is a 71 year old male with history of hypertension and colorectal cancer. He had a 6 cm colon resection with radiation daily and chemotherapy in 2005 when it was initially diagnosed. He had a recurrence in 2011 with the right adrenal metastasis. Last year he developed jaundice and at that time ERCP and sphincterotomy and biliary stent placement. He was at that time diagnosed to have liver metastasis he has been on chemotherapy. Patient has been followed by Dr. Petit in his director appointment Dr. Flaco Bear. On the morning of admission patient noted rectal bleeding while he was in shower there is no associated abdominal or rectal pain. There is no associated nausea vomiting. He does report some loose stool recently no associated fever. He was seen in the ER and noted to have a stable hemodynamics with blood pressure 150/93 pulse 70/min. His hemoglobin is 13 hematocrit 38.2 which is stable compared to one in April 2016. Patient remained hemodynamically stable here and did have one episode of mild bleeding with bowel movement evening of admission. Notable bleeding was sustained. He underwent EGD and colonoscopy today and reported to have a gastroesophageal reflux disease diverticulosis and internal hemorrhoids. No evidence of malignancy seen and the GI bleed was suspected to be either due to hemorrhoids or diverticulosis. Patient hemoglobin hematocrit stable from yesterday. Dr. Bear also send for small bowel through series. I followed the result and does not seem to be any concerning for me. He will be discharged home and have follow-up with the Dr. Bear and Dr. Petit as well as his primary care physician will continue PPI . Also on admission was noted to have some lower extremities edema without any orthopnea or dyspnea he had venous Doppler studies which were negative and swelling seemed to be almost resolved. Need to follow-up with his primary care physician Diagnosis - Discharge Diagnosis (1) Hematochezia Status: Acute (2) Anemia Status: Acute (3) Edema Status: Resolved Discharge Plan - Discharge Data Disposition: Disch To Home/Self Care Condition at Discharge: Stable Discharge Diet: advance to your usual diet Activity: resume usual activities as tolerated - Discharge Medications New Pantoprazole Tab [Protonix Tab] 40 mg PO DAILY #30 tablet Continue Aspirin [Ecotrin] 325 mg PO DAILY Multivitamin [One Daily] 1 tablet PO DAILY Metoprolol Tartrate 25 mg PO DAILY Magnesium Chloride [Slow Mag] 64 mg PO DAILY - Follow Up or Referral - Forms/Instructions Exam - Constitutional Vitals: Period Temp Pulse Resp BP Sys/Diamond Pulse Ox Last 24 Hr 96.0 F-98.9 F 60-75 16-20 121-158/54-080 92-98 General appearance: no acute distress - Respiratory Respiratory exam: Present: clear to auscultation bilaterally. Absent: rales, rhonchi - Cardiovascular Cardiovascular exam: Present: regular rate and rhythm. Absent: tachycardia - GI/Abdominal GI/Abdominal exam: Present: normal bowel sounds, soft. Absent: ascites, tenderness - Extremities Exam Extremities exam: Present: normal inspection. Absent: edema - Neurological Exam Neurological exam: Present: alert, oriented X3 Discharge Results Procedures and tests throughout hospitalization: Pending Orders 07/30/16 11:17 [place] small bowel follow through Routine Labs on day of discharge: Labs from last 24 hours 07/30/16 07/30/16 07:00 04:00 WBC 3.3 L RBC 3.54 L Hgb 11.7 L Hct 34.5 L MCV 97.5 MCH 33 MCHC 33.9 RDW 15.9 Plt Count 148 MPV 9.4 L Neut % (Auto) 64.4 Lymph % (Auto) 21.2 [place] % (Auto) 7.4 Eos % (Auto) 5.2 Baso % (Auto) 1.5 H Neut # (Auto) 2.1 Lymph # (Auto) 0.7 L [place] # (Auto) 0.2 Eos # (Auto) 0.2 Baso # (Auto) 0.1 Immature Gran % 0.3 Nucleated RBC % 0.0 Immature Gran # 0.01 Nucleated RBCs # 0.00 Sodium 141 Potassium 4.1 Chloride 104 Carbon Dioxide 30 Anion Gap 11.1 BUN 15 Creatinine 1.00 GFR Calculation 103 BUN/Creatinine Ratio 15.00 Glucose 104 Calculated Osmolality 281.3 Calcium 8.5 DS: Provider Date of admission: 07/28/16 14:43 Primary care physician: Keila Prieto M.D. Attending physician on admission: Robert Fall MD Consults: 07/28/16 15:46 Consult to Physician [CONS] Routine Comment: hematichezia know to Dr. Bear Consulting Provider: Flaco Bear Consulting Provider Notified: Yes When should Consulting Provider be notified: Now Consult to Specialist Group: Gastroenterology When should Consulting Provider be notified: Now Person Notified: RACIEL Date Notified: 07/29/16 Time Notified: 09:27 Discharging clinician: Robert Fall MD
--- NOTE | 2016-07-30 12:24 | Anesthesia Post-Op ---
Anesthesia Post OP - Post Ansesthetic Evaluation Patient seen in post op: Yes Resp: within normal limits CV: within normal limits Mental: within normal limits Temp: within normal limits [id number]: within normal limits Nausea and Vomiting: within normal limits Pain: within normal limits
--- NOTE | 2016-07-30 14:09 | Fluoroscopy Report ---
Referring Physician: Flaco Bear MD Exam: [place] small bowel follow through Date: July 30, 2016 Reason: Acute GI bleed with history of metastatic colon cancer Comparison: CT chest, abdomen and pelvis March 27, 2016 Technique: A mirror fabrication supervisor KUB image was acquired prior to procedure. The patient was then orally administered barium contrast material, and delayed KUB images were obtained over 30 minutes. Spot images of the ileocecal junction were then acquired. Fluoroscopy time was 2 minutes. Findings: On the mirror fabrication supervisor image, there is mild diffuse gaseous distention of the colon, which could reflect mild ileus or could be related to a recent colonoscopy. There is mild contrast within the lower esophagus on the 15 minute delayed image, suggesting gastroesophageal reflux. There may be a small hiatal hernia. The stomach is otherwise unremarkable. The small bowel demonstrates normal contour and fold pattern. No suspicious intraluminal filling defect or definite inflammatory change is seen at the small bowel. The ileocecal junction is unremarkable. Impression: 1. Mild gastroesophageal reflux and possible small hiatal hernia. 2. There is mild gaseous distention of the colon. This could represent mild ileus or could be related to a recent colonoscopy. 3. The small bowel is unremarkable. PROCEDURE INTERPRETED AT [facility] DEPARTMENT OF RADIOLOGY Final Report Signed by: Dr. Ethan Engel
[2016-07-30] MEDS: PANTOPRAZOLE 40 MG TABLET PO SCH (15:04)
[2016-07-30] MEDS: MULTIVITAMIN (CENTRUM) TABLET PO SCH (15:04)
[2016-07-30] MEDS: METOPROLOL TARTRATE 25 MG TABLET PO SCH (15:04)
[2016-07-30 18:59] VITALS: BP 168/77
== END 2016-07-30 16:05 | disposition home or self-care (01) | DRG 393 ==
LOC: N.ED 11:27 → N.EDINP 14:43 → N.4E 15:45
PROVIDERS: ADMIT Internal Medicine; ATTEND Internal Medicine

== ENCOUNTER 2018-07-08 13:57 | Inpatient (IN) ==
[2018-07-08] MEDS ORDERED: SODIUM CHLORIDE 0.9% 1,000 ML IV STA (16:15)
[2018-07-08] MEDS ORDERED: ONDANSETRON 4 MG/2 ML VIAL IV STA (16:15)
[2018-07-08] MEDS ORDERED: chlorproMAZINE INJ 25 MG in SODIUM CHLORIDE 0.9% 100 ML IV STA (16:15)
[2018-07-08] MEDS ORDERED: BENZTROPINE 2 MG/2 ML AMP IV ONE (16:15)
[2018-07-08 16:27] LABS: Basophils # 0.1 10*3/uL (0.0-0.2); Basophils % 0.6 % (0.0-0.8); Eosinophils # 0.2 10*3/uL (0.0-0.87); Eosinophils % 2.2 % (0.00-10.9); Hematocrit 47.9 VOL% (42.0-52.0); Hemoglobin 15.8 GM/DL (14.0-18.0); Immature Granulocytes % 0.3 %; Immature Granulocytes Absolute 0.03 #; Lymphocytes # 1.5 10*3/uL (1.4-4.0); Lymphocytes % 14.7 % (21.2-54.2); Mean Corpuscular Volume 87.2 FL (87-102); Mean Platelet Volume 9.7 FL (9.6-12.0); Monocytes % 11.9 % (1.7-12.7); Neutrophils % 70.3 % (38.7-73.9); Platelet Count 278 T/CUMM (130-400); Red Blood Count 5.49 MC/CUMM (3.8-5.5); Red Cell Distribution Width 13.6 % (9.3-17.3); White Blood Count 10.2 T/CUMM (4-12)
[2018-07-08 16:42] LABS: Albumin 3.6 G/DL (3.4-5.0); Bilirubin,Total 1.1 MG/DL (0.2-1.0); Calcium 9.1 MG/DL (8.5-10.1); Osmolality,Calculated 276.7 MOS/KG (273-304); Total Protein 7.1 G/DL (6.4-8.3)
[2018-07-08] MEDS ORDERED: POTASSIUM CHLORIDE RIDER 20 MEQ in PREMIX 1 EACH IV STA ×2 (16:45→16:46)
[2018-07-08] MEDS ORDERED: POTASSIUM CHLORIDE RIDER 100 ML IV ONE (16:54)
[2018-07-08] MEDS ORDERED: PROMETHAZINE 25 MG/1 ML VIAL IM PRN (18:59)
[2018-07-08] MEDS ORDERED: MORPHINE 4 MG/1 ML VIAL IV PRN (18:59)
[2018-07-08] MEDS ORDERED: LACTATED RINGERS 1,000 ML IV SCH (19:30)
[2018-07-08] MEDS ORDERED: PANTOPRAZOLE 40 MG VIAL IV ONE (21:31)
[2018-07-08] MEDS: POTASSIUM CHLORIDE RIDER 10 MEQ in PREMIX 1 EACH IV SCH (23:00)
[2018-07-09] MEDS ORDERED: SODIUM CHLORIDE 0.9% 500 ML IV ONE (01:08)
[2018-07-09] MEDS: POTASSIUM CHLORIDE RIDER 10 MEQ in PREMIX 1 EACH IV SCH ×9 (01:10→13:07)
[2018-07-09] MEDS ORDERED: POTASSIUM CHLORIDE RIDER 10 MEQ in PREMIX 1 EACH IV SCH (03:30)
[2018-07-09 05:53] LABS: Basophils # 0.1 10*3/uL (0.0-0.2); Basophils % 0.6 % (0.0-0.8); Eosinophils # 0.4 10*3/uL (0.0-0.87); Eosinophils % 4.3 % (0.00-10.9); Hematocrit 41.6 VOL% (42.0-52.0); Hemoglobin 13.6 GM/DL (14.0-18.0); Immature Granulocytes % 0.3 %; Immature Granulocytes Absolute 0.03 #; Lymphocytes # 1.5 10*3/uL (1.4-4.0); Lymphocytes % 16.1 % (21.2-54.2); Mean Corpuscular HGB Conc 32.7 GM/DL (32-36); Mean Corpuscular Volume 88.1 FL (87-102); Mean Platelet Volume 9.9 FL (9.6-12.0); Monocytes % 10.7 % (1.7-12.7); Platelet Count 222 T/CUMM (130-400); Red Blood Count 4.72 MC/CUMM (3.8-5.5); Red Cell Distribution Width 13.5 % (9.3-17.3); White Blood Count 9.3 T/CUMM (4-12)
[2018-07-09 06:00] LABS: Apearance,Urine Slightly Hazy (Clear); Bacteria,Urine Occasional /HPF (Few); Bilirubin,Urine Negative (Negative); Blood, Urine Large mg/dL (Negative); Glucose,Urine (UA) Negative (Negative); Hyaline Casts,Urine 21 /LPF (0-3); Ketones,Urine 80 mg/dL (Negative); Mucus,Urine Occasional /LPF (Occasional); Nitrite,Urine Negative (Negative); Protein,Urine 100 MG/DL; RBC,Urine 113 /HPF (0-4); Squamous Epithelial Cell,Urine Occasional /HPF (0-10); Urine Color Amber (Yellow); Urine Specific Gravity 1.023 (1.001-1.035); WBC,Urine 35 /HPF (0-6)
[2018-07-09 06:24] LABS: Albumin 2.8 G/DL (3.4-5.0); Bilirubin,Total 1.2 MG/DL (0.2-1.0); Calcium 7.5 MG/DL (8.5-10.1); Osmolality,Calculated 282.1 MOS/KG (273-304); Total Protein 5.3 G/DL (6.4-8.3)
[2018-07-09] MEDS ORDERED: MAGNESIUM SULF RIDER 2 GM in PREMIX 1 EACH IV ONE (08:00)
[2018-07-09] MEDS: POTASSIUM CHLORIDE INJ 40 MEQ in LACTATED RINGERS 1,000 ML IV SCH ×2 (09:12→18:40)
[2018-07-09] MEDS: PANTOPRAZOLE 40 MG VIAL IV SCH (09:14)
[2018-07-09] MEDS: METOPROLOL TARTRATE 25 MG TABLET PO SCH (09:26)
[2018-07-10] MEDS: POTASSIUM CHLORIDE INJ 40 MEQ in LACTATED RINGERS 1,000 ML IV SCH ×2 (04:22→12:29)
[2018-07-10 05:47] LABS: Basophils # 0.1 10*3/uL (0.0-0.2); Eosinophils # 0.6 10*3/uL (0.0-0.87); Eosinophils % 7.9 % (0.00-10.9); Hematocrit 38.3 VOL% (42.0-52.0); Hemoglobin 12.5 GM/DL (14.0-18.0); Immature Granulocytes % 0.3 %; Immature Granulocytes Absolute 0.02 #; Lymphocytes # 1.1 10*3/uL (1.4-4.0); Lymphocytes % 14.9 % (21.2-54.2); Mean Corpuscular HGB Conc 32.6 GM/DL (32-36); Mean Corpuscular Volume 88.7 FL (87-102); Mean Platelet Volume 10.5 FL (9.6-12.0); Monocytes % 9.9 % (1.7-12.7); Platelet Count 187 T/CUMM (130-400); Red Blood Count 4.32 MC/CUMM (3.8-5.5); Red Cell Distribution Width 13.5 % (9.3-17.3); White Blood Count 7.1 T/CUMM (4-12)
[2018-07-10 06:34] LABS: Osmolality,Calculated 278.1 MOS/KG (273-304)
[2018-07-10 07:03] LABS: Albumin 2.7 G/DL (3.4-5.0); Bilirubin,Total 0.8 MG/DL (0.2-1.0); Calcium 7.9 MG/DL (8.5-10.1); Osmolality,Calculated 279.1 MOS/KG (273-304); Total Protein 5.2 G/DL (6.4-8.3)
[2018-07-10] MEDS ORDERED: POTASSIUM CHLORIDE RIDER 10 MEQ in PREMIX 1 EACH IV SCH (08:00)
[2018-07-10] MEDS: POTASSIUM CHLORIDE RIDER 20 MEQ in PREMIX 1 EACH IV SCH ×3 (08:46→13:58)
[2018-07-10] MEDS ORDERED: MAGNESIUM SULF RIDER 4 GM in PREMIX 1 EACH IV ONE (09:00)
[2018-07-10] MEDS ORDERED: PROPOFOL 200 MG/20 ML VIAL IV ONE (09:58)
[2018-07-10] MEDS ORDERED: ETOMIDATE 40 MG/20 ML VIAL IV ONE (09:58)
[2018-07-10] MEDS: METOPROLOL TARTRATE 25 MG TABLET PO SCH (10:07)
[2018-07-10] MEDS ORDERED: MAGNESIUM SULF RIDER 4 GM in PREMIX 1 EACH IV PRN (11:00)
[2018-07-10] MEDS: PANTOPRAZOLE 40 MG VIAL IV SCH (11:35)
[2018-07-10] MEDS: POTASSIUM CHLORIDE INJ 40 MEQ in DEXTROSE 5% LACTATED RINGERS 1,000 ML IV SCH ×3 (16:30→23:47)
[2018-07-11 05:21] LABS: Basophils # 0.1 10*3/uL (0.0-0.2); Basophils % 0.9 % (0.0-0.8); Eosinophils # 0.5 10*3/uL (0.0-0.87); Eosinophils % 8.7 % (0.00-10.9); Hematocrit 34.3 VOL% (42.0-52.0); Hemoglobin 11.2 GM/DL (14.0-18.0); Immature Granulocytes % 0.3 %; Immature Granulocytes Absolute 0.02 #; Lymphocytes # 0.8 10*3/uL (1.4-4.0); Lymphocytes % 13.7 % (21.2-54.2); Mean Corpuscular HGB Conc 32.7 GM/DL (32-36); Mean Corpuscular Volume 88.4 FL (87-102); Monocytes % 11.1 % (1.7-12.7); Neutrophils % 65.3 % (38.7-73.9); Platelet Count 168 T/CUMM (130-400); Red Blood Count 3.88 MC/CUMM (3.8-5.5); Red Cell Distribution Width 13.6 % (9.3-17.3); White Blood Count 5.9 T/CUMM (4-12)
[2018-07-11 05:40] LABS: Calcium 6.1 MG/DL (8.5-10.1); Osmolality,Calculated 291.3 MOS/KG (273-304); Prealbumin 9.4 MG/DL (20-40)
[2018-07-11] MEDS: POTASSIUM CHLORIDE RIDER 20 MEQ in PREMIX 1 EACH IV PRN (06:22)
[2018-07-11] MEDS: MAGNESIUM SULF RIDER 2 GM in PREMIX 1 EACH IV PRN (06:25)
[2018-07-11] MEDS: POTASSIUM PHOSPHATE 30 MMOL in SODIUM CHLORIDE 0.9% 250 ML IV ONE ×2 (08:31→09:21)
[2018-07-11] MEDS: MAGNESIUM SULF RIDER 4 GM in PREMIX 1 EACH IV ONE ×2 (08:31→08:34)
[2018-07-11] MEDS: METOPROLOL TARTRATE 25 MG TABLET PO SCH (08:33)
[2018-07-11] MEDS: PANTOPRAZOLE 40 MG VIAL IV SCH ×3 (08:33→21:43)
[2018-07-11 09:18] LABS: Carcinoembryonic Antigen < 0.5 NG/ML (0.0-5.0)
[2018-07-11] MEDS ORDERED: CALCIUM GLUCONATE 2,000 MG in SODIUM CHLORIDE 0.9% 100 ML IV ONE (10:09)
[2018-07-11] MEDS ORDERED: GLUCAGON 1 MG VIAL IM PRN (11:22)
[2018-07-11] MEDS ORDERED: DEXTROSE 50% 25 GM/50 ML SYRINGE IV PRN (11:22)
[2018-07-11 14:23] LABS: Albumin 3.1 G/DL (3.4-5.0); Bilirubin,Total 0.8 MG/DL (0.2-1.0); Calcium 8.5 MG/DL (8.5-10.1); Total Protein 6.3 G/DL (6.4-8.3)
[2018-07-11] MEDS ORDERED: TRACE ELEMENTS (5) 1 ML, MULTIVITAMIN INJ 10 ML in AMINO ACIDS/DEXT/LYTES 5-15% 2,000 ML IV SCH (17:00)
[2018-07-11] MEDS ORDERED: ALUMINUM/MAGNES/SIMETH MAX STR 30 ML UDCUP PO ONE (17:16)
[2018-07-11] MEDS: FAT EMULSION 20% 250 ML IV SCH (17:28)
[2018-07-11] MEDS: POTASSIUM CHLORIDE INJ 40 MEQ in DEXTROSE 5% LACTATED RINGERS 1,000 ML IV SCH ×2 (19:05→19:06)
[2018-07-12 06:26] LABS: Basophils # 0.1 10*3/uL (0.0-0.2); Basophils % 0.9 % (0.0-0.8); Eosinophils # 0.5 10*3/uL (0.0-0.87); Hematocrit 42.4 VOL% (42.0-52.0); Hemoglobin 13.9 GM/DL (14.0-18.0); Immature Granulocytes % 0.5 %; Immature Granulocytes Absolute 0.03 #; Lymphocytes % 14.5 % (21.2-54.2); Mean Corpuscular HGB Conc 32.8 GM/DL (32-36); Mean Corpuscular Volume 89.1 FL (87-102); Mean Platelet Volume 10.2 FL (9.6-12.0); Monocytes % 8.8 % (1.7-12.7); Neutrophils % 67.3 % (38.7-73.9); Platelet Count 191 T/CUMM (130-400); Red Blood Count 4.76 MC/CUMM (3.8-5.5); Red Cell Distribution Width 13.6 % (9.3-17.3); White Blood Count 6.6 T/CUMM (4-12)
[2018-07-12 06:42] LABS: Calcium 8.6 MG/DL (8.5-10.1); Osmolality,Calculated 292.3 MOS/KG (273-304)
[2018-07-12 06:46] LABS: Albumin 2.9 G/DL (3.4-5.0); Bilirubin,Total 0.6 MG/DL (0.2-1.0); Calcium 8.4 MG/DL (8.5-10.1); Osmolality,Calculated 288.6 MOS/KG (273-304)
[2018-07-12] MEDS ORDERED: ROCURONIUM 100 MG/10 ML VIAL IV ONE (08:00)
[2018-07-12] MEDS ORDERED: ONDANSETRON 4 MG/2 ML VIAL ONE (08:00)
[2018-07-12] MEDS ORDERED: SUCCINYLCHOLINE 200 MG/10 ML VIAL ONE (08:00)
[2018-07-12] MEDS ORDERED: LIDOCAINE 2% 5 ML VIAL ONE (08:00)
[2018-07-12] MEDS ORDERED: PROPOFOL 200 MG/20 ML VIAL IV ONE (08:00)
[2018-07-12] MEDS ORDERED: LACTATED RINGERS 500 ML IV SCH (08:00)
[2018-07-12] MEDS: PANTOPRAZOLE 40 MG VIAL IV SCH ×2 (08:56→21:16)
[2018-07-12] MEDS: METOPROLOL TARTRATE 25 MG TABLET PO SCH ×2 (08:56→09:00)
[2018-07-12] MEDS ORDERED: fentaNYL 100 MCG/2 ML VIAL ONE (11:52)
[2018-07-12] MEDS ORDERED: ALBUTEROL/IPRATROPIUM 3 ML NEB RESP TX STA (12:35)
[2018-07-12] MEDS: METOPROLOL TARTRATE 5 MG/5 ML VIAL IV SCH ×2 (13:41→21:16)
[2018-07-12] MEDS: FAT EMULSION 20% 250 ML IV SCH (14:11)
[2018-07-12] MEDS: TRACE ELEMENTS (5) 1 ML, MULTIVITAMIN INJ 10 ML in AMINO ACIDS/DEXT/LYTES 5-15% 2,000 ML IV SCH (18:58)
[2018-07-12] MEDS: POTASSIUM CHLORIDE INJ 40 MEQ in DEXTROSE 5% LACTATED RINGERS 1,000 ML IV SCH (21:15)
[2018-07-12] MEDS: POTASSIUM CHLORIDE RIDER 10 MEQ in PREMIX 1 EACH IV PRN ×2 (21:46→23:20)
[2018-07-13 02:36] LABS: Basophils % 0.2 % (0.0-0.8); Hematocrit 41.7 VOL% (42.0-52.0); Hemoglobin 13.8 GM/DL (14.0-18.0); Immature Granulocytes % 0.2 %; Immature Granulocytes Absolute 0.02 #; Lymphocytes # 0.9 10*3/uL (1.4-4.0); Lymphocytes % 7.9 % (21.2-54.2); Mean Corpuscular HGB Conc 33.1 GM/DL (32-36); Mean Corpuscular Volume 88.9 FL (87-102); Mean Platelet Volume 10.2 FL (9.6-12.0); Monocytes % 6.3 % (1.7-12.7); Neutrophils % 85.4 % (38.7-73.9); Platelet Count 221 T/CUMM (130-400); Red Blood Count 4.69 MC/CUMM (3.8-5.5); Red Cell Distribution Width 13.7 % (9.3-17.3); White Blood Count 11.3 T/CUMM (4-12)
[2018-07-13 03:04] LABS: Calcium 8.5 MG/DL (8.5-10.1); Osmolality,Calculated 288.7 MOS/KG (273-304)
[2018-07-13] MEDS: POTASSIUM CHLORIDE INJ 40 MEQ in DEXTROSE 5% LACTATED RINGERS 1,000 ML IV SCH ×4 (06:43→23:26)
[2018-07-13] MEDS: PANTOPRAZOLE 40 MG VIAL IV SCH ×2 (08:59→21:02)
[2018-07-13] MEDS: METOPROLOL TARTRATE 5 MG/5 ML VIAL IV SCH ×2 (09:00→21:04)
[2018-07-13] MEDS: FAT EMULSION 20% 250 ML IV SCH (17:10)
[2018-07-13] MEDS: TRACE ELEMENTS (5) 1 ML, MULTIVITAMIN INJ 10 ML in AMINO ACIDS/DEXT/LYTES 5-15% 2,000 ML IV SCH (17:11)
[2018-07-14 04:06] LABS: Basophils # 0.1 10*3/uL (0.0-0.2); Basophils % 0.6 % (0.0-0.8); Eosinophils # 0.4 10*3/uL (0.0-0.87); Eosinophils % 3.7 % (0.00-10.9); Hematocrit 41.5 VOL% (42.0-52.0); Hemoglobin 13.4 GM/DL (14.0-18.0); Immature Granulocytes % 0.2 %; Immature Granulocytes Absolute 0.02 #; Lymphocytes # 1.4 10*3/uL (1.4-4.0); Lymphocytes % 14.9 % (21.2-54.2); Mean Corpuscular HGB Conc 32.3 GM/DL (32-36); Mean Corpuscular Volume 90.4 FL (87-102); Mean Platelet Volume 10.6 FL (9.6-12.0); Monocytes % 8.1 % (1.7-12.7); Neutrophils % 72.5 % (38.7-73.9); Platelet Count 198 T/CUMM (130-400); Red Blood Count 4.59 MC/CUMM (3.8-5.5); White Blood Count 9.7 T/CUMM (4-12)
[2018-07-14 04:22] LABS: Albumin 2.8 G/DL (3.4-5.0); Bilirubin,Total 0.8 MG/DL (0.2-1.0); Osmolality,Calculated 291.6 MOS/KG (273-304); Total Protein 5.8 G/DL (6.4-8.3)
[2018-07-14] MEDS: POTASSIUM CHLORIDE RIDER 10 MEQ in PREMIX 1 EACH IV PRN ×4 (05:39→15:48)
[2018-07-14] MEDS: METOPROLOL TARTRATE 5 MG/5 ML VIAL IV SCH ×2 (10:06→20:31)
[2018-07-14] MEDS: PANTOPRAZOLE 40 MG VIAL IV SCH ×2 (10:08→20:35)
[2018-07-14] MEDS: TRACE ELEMENTS (5) 1 ML, MULTIVITAMIN INJ 10 ML in AMINO ACIDS/DEXT/LYTES 5-15% 2,000 ML IV SCH (15:09)
[2018-07-14] MEDS: FAT EMULSION 20% 250 ML IV SCH (15:09)
[2018-07-14] MEDS: MAGNESIUM SULF RIDER 2 GM in PREMIX 1 EACH IV PRN ×2 (18:09→20:30)
[2018-07-14] MEDS: POTASSIUM CHLORIDE INJ 40 MEQ in DEXTROSE 5% LACTATED RINGERS 1,000 ML IV SCH ×2 (18:10→20:29)
[2018-07-15 04:34] LABS: Basophils # 0.1 10*3/uL (0.0-0.2); Basophils % 0.7 % (0.0-0.8); Eosinophils # 0.5 10*3/uL (0.0-0.87); Eosinophils % 7.4 % (0.00-10.9); Hematocrit 43.4 VOL% (42.0-52.0); Hemoglobin 13.9 GM/DL (14.0-18.0); Immature Granulocytes % 0.3 %; Immature Granulocytes Absolute 0.02 #; Lymphocytes # 1.1 10*3/uL (1.4-4.0); Lymphocytes % 15.2 % (21.2-54.2); Mean Corpuscular Volume 90.6 FL (87-102); Mean Platelet Volume 10.4 FL (9.6-12.0); Monocytes % 9.9 % (1.7-12.7); Neutrophils % 66.5 % (38.7-73.9); Platelet Count 199 T/CUMM (130-400); Red Blood Count 4.79 MC/CUMM (3.8-5.5); Red Cell Distribution Width 13.7 % (9.3-17.3); White Blood Count 7.2 T/CUMM (4-12)
[2018-07-15 05:08] LABS: Albumin 2.7 G/DL (3.4-5.0); Calcium 8.5 MG/DL (8.5-10.1); Osmolality,Calculated 286.8 MOS/KG (273-304); Total Protein 5.8 G/DL (6.4-8.3)
[2018-07-15] MEDS: POTASSIUM CHLORIDE INJ 40 MEQ in DEXTROSE 5% LACTATED RINGERS 1,000 ML IV SCH ×3 (05:12→13:23)
[2018-07-15] MEDS ORDERED: cefOXitin 2,000 MG in SYRINGE 1 EACH IV ONE (06:30)
[2018-07-15] MEDS: METOPROLOL TARTRATE 5 MG/5 ML VIAL IV SCH ×2 (08:37→20:59)
[2018-07-15] MEDS: PANTOPRAZOLE 40 MG VIAL IV SCH ×2 (08:37→20:56)
[2018-07-15] MEDS: TRACE ELEMENTS (5) 1 ML, MULTIVITAMIN INJ 10 ML in AMINO ACIDS/DEXT/LYTES 5-15% 2,000 ML IV SCH ×2 (10:28→16:34)
[2018-07-15] MEDS ORDERED: LIDOCAINE 1%/EPI INJ 20 ML VIAL ONE (13:47)
[2018-07-15] MEDS ORDERED: SUGAMMADEX 200 MG/2 ML VIAL IV ONE (14:23)
[2018-07-15] MEDS ORDERED: MEPERIDINE 25 MG/1 ML VIAL ONE ×2 (15:33→15:49)
[2018-07-15] MEDS ORDERED: ONDANSETRON 4 MG/2 ML VIAL ONE ×2 (15:33→15:40)
[2018-07-15] MEDS: MEPERIDINE 50 MG/1 ML VIAL IV PRN ×2 (15:35→15:50)
[2018-07-15] MEDS ORDERED: PROPOFOL 200 MG/20 ML VIAL IV ONE (15:39)
[2018-07-15] MEDS ORDERED: NEOSTIGMINE 10 MG/10 ML VIAL ONE (15:40)
[2018-07-15] MEDS ORDERED: DEXAMETHASONE 4 MG/1 ML VIAL ONE (15:40)
[2018-07-15] MEDS ORDERED: SUCCINYLCHOLINE 200 MG/10 ML VIAL ONE (15:40)
[2018-07-15] MEDS ORDERED: ROCURONIUM 100 MG/10 ML VIAL IV ONE (15:40)
[2018-07-15] MEDS ORDERED: PHENYLEPHRINE 1 MG/10 ML SYRINGE IV ONE (15:40)
[2018-07-15] MEDS ORDERED: SEVOFLURANE 1 UNIT/15 MINUTE INH ONE (15:40)
[2018-07-15] MEDS ORDERED: GLYCOPYRROLATE 0.4 MG/2 ML VIAL ONE (15:40)
[2018-07-15] MEDS ORDERED: LACTATED RINGERS 1,000 ML IV ONE (15:40)
[2018-07-15] MEDS ORDERED: ONDANSETRON 4 MG/2 ML VIAL IV PRN (15:44)
[2018-07-15] MEDS: FAT EMULSION 20% 250 ML IV SCH (16:35)
[2018-07-16 04:22] LABS: Basophils % 0.1 % (0.0-0.8); Eosinophils % 0.1 % (0.00-10.9); Hematocrit 42.1 VOL% (42.0-52.0); Hemoglobin 13.5 GM/DL (14.0-18.0); Immature Granulocytes % 0.2 %; Immature Granulocytes Absolute 0.02 #; Lymphocytes # 0.7 10*3/uL (1.4-4.0); Mean Corpuscular HGB Conc 32.1 GM/DL (32-36); Mean Corpuscular Volume 89.8 FL (87-102); Neutrophils % 85.6 % (38.7-73.9); Platelet Count 190 T/CUMM (130-400); Red Blood Count 4.69 MC/CUMM (3.8-5.5); Red Cell Distribution Width 13.3 % (9.3-17.3); White Blood Count 11.2 T/CUMM (4-12)
[2018-07-16 04:49] LABS: Albumin 2.5 G/DL (3.4-5.0); Bilirubin,Total 1.8 MG/DL (0.2-1.0); Calcium 8.6 MG/DL (8.5-10.1); Total Protein 5.8 G/DL (6.4-8.3)
[2018-07-16] MEDS: PANTOPRAZOLE 40 MG VIAL IV SCH ×2 (08:15→21:10)
[2018-07-16] MEDS: METOPROLOL TARTRATE 5 MG/5 ML VIAL IV SCH ×2 (09:32→21:13)
[2018-07-16] MEDS: TRACE ELEMENTS (5) 1 ML, MULTIVITAMIN INJ 10 ML in AMINO ACIDS/DEXT/LYTES 5-15% 2,000 ML IV SCH (09:35)
[2018-07-16] MEDS: FAT EMULSION 20% 250 ML IV SCH (14:28)
[2018-07-16] MEDS: MORPHINE 4 MG/1 ML VIAL IV PRN (21:00)
[2018-07-16] MEDS: ONDANSETRON 4 MG/2 ML VIAL IV PRN (21:07)
[2018-07-17 05:12] LABS: Basophils % 0.3 % (0.0-0.8); Eosinophils % 0.3 % (0.00-10.9); Hematocrit 41.7 VOL% (42.0-52.0); Hemoglobin 13.6 GM/DL (14.0-18.0); Immature Granulocytes % 0.6 %; Immature Granulocytes Absolute 0.05 #; Lymphocytes # 0.2 10*3/uL (1.4-4.0); Mean Corpuscular HGB Conc 32.6 GM/DL (32-36); Mean Corpuscular Volume 88.5 FL (87-102); Mean Platelet Volume 11.3 FL (9.6-12.0); Monocytes % 5.8 % (1.7-12.7); Platelet Count 144 T/CUMM (130-400); Red Blood Count 4.71 MC/CUMM (3.8-5.5); Red Cell Distribution Width 13.4 % (9.3-17.3)
[2018-07-17 05:32] LABS: Albumin 2.6 G/DL (3.4-5.0); Bilirubin,Total 1.7 MG/DL (0.2-1.0); Calcium 7.9 MG/DL (8.5-10.1); Osmolality,Calculated 279.7 MOS/KG (273-304); Total Protein 6.2 G/DL (6.4-8.3)
[2018-07-17] MEDS: TRACE ELEMENTS (5) 1 ML, MULTIVITAMIN INJ 10 ML in AMINO ACIDS/DEXT/LYTES 5-15% 2,000 ML IV SCH ×2 (06:00→23:08)
[2018-07-17] MEDS: POTASSIUM CHLORIDE INJ 40 MEQ in DEXTROSE 5% LACTATED RINGERS 1,000 ML IV SCH ×2 (06:09→12:52)
[2018-07-17 06:36] LABS: Band Neutrophils 1 % (0-10); Platelet Estimate Normal; Segmented Neutrophils 93 % (50-85); Total Cells Counted 100
[2018-07-17] MEDS ORDERED: PROMETHAZINE INJ 25 MG in SODIUM CHLORIDE 0.9% 50 ML IV PRN (08:55)
[2018-07-17] MEDS: PANTOPRAZOLE 40 MG VIAL IV SCH ×2 (09:20→21:56)
[2018-07-17] MEDS: METOPROLOL TARTRATE 5 MG/5 ML VIAL IV SCH (09:23)
[2018-07-17] MEDS ORDERED: ACETAMINOPHEN INJ 1,000 MG in PREMIX 1 EACH IV ONE (13:00)
[2018-07-17] MEDS ORDERED: VANCOMYCIN INJ 1,250 MG in SODIUM CHLORIDE 0.9% 250 ML IV SCH (13:00)
[2018-07-17] MEDS ORDERED: DEXT 5% NACL 0.45% KCL 20 MEQ 20 MEQ/1,000 ML BAG IV SCH (13:30)
[2018-07-17] MEDS ORDERED: POTASSIUM CHLORIDE INJ 20 MEQ, MAGNESIUM SULF INJ 1 GM in DEXTROSE 5% NACL 0.45% 1,000 ML IV SCH (14:30)
[2018-07-17] MEDS: MEROPENEM 1,000 MG in SODIUM CHLORIDE 0.9% 100 ML IV SCH ×2 (14:31→21:57)
[2018-07-17] MEDS: metroNIDAZOLE INJ 500 MG in PREMIX 1 EACH IV SCH ×3 (14:38→23:03)
[2018-07-17] MEDS ORDERED: NOREPINEPHRINE 8 MG in SODIUM CHLORIDE 0.9% 242 ML IV PRN (15:57)
[2018-07-17] MEDS: FAT EMULSION 20% 250 ML IV SCH (16:18)
[2018-07-17] MEDS: VANCOMYCIN INJ 1,000 MG in SODIUM CHLORIDE 0.9% 250 ML IV SCH (16:53)
[2018-07-17] MEDS: ONDANSETRON 4 MG/2 ML VIAL IV PRN (21:56)
[2018-07-18] MEDS: VANCOMYCIN INJ 1,000 MG in SODIUM CHLORIDE 0.9% 250 ML IV SCH ×2 (01:20→13:31)
[2018-07-18] MEDS ORDERED: AMIODARONE INJ 150 MG in DEXTROSE 5% 100 ML IV ONE (04:09)
[2018-07-18 05:00] LABS: Albumin 2.1 G/DL (3.4-5.0); Basophils # 0.1 10*3/uL (0.0-0.2); Basophils % 0.4 % (0.0-0.8); Bilirubin,Total 0.9 MG/DL (0.2-1.0); Calcium 7.5 MG/DL (8.5-10.1); Eosinophils # 0.2 10*3/uL (0.0-0.87); Hematocrit 35.5 VOL% (42.0-52.0); Hemoglobin 11.7 GM/DL (14.0-18.0); Immature Granulocytes % 1.4 %; Immature Granulocytes Absolute 0.24 #; Lymphocytes # 1.1 10*3/uL (1.4-4.0); Lymphocytes % 6.4 % (21.2-54.2); Mean Corpuscular Volume 88.3 FL (87-102); Mean Platelet Volume 11.8 FL (9.6-12.0); Monocytes % 7.2 % (1.7-12.7); Neutrophils % 83.6 % (38.7-73.9); Osmolality,Calculated 287.4 MOS/KG (273-304); Platelet Count 96 T/CUMM (130-400); Red Blood Count 4.02 MC/CUMM (3.8-5.5); Red Cell Distribution Width 13.7 % (9.3-17.3); Total Protein 4.5 G/DL (6.4-8.3); White Blood Count 16.7 T/CUMM (4-12)
[2018-07-18 05:27] LABS: Anisocytosis Slight; Band Neutrophils 4 % (0-10); Eosinophils 1 % (0-10); Lymphocytes 4 % (20-55); Microcytosis 1+; Segmented Neutrophils 81 % (50-85); Total Cells Counted 100
[2018-07-18 05:28] LABS: Ovalocytes Slight; Platelet Estimate Decreased
[2018-07-18] MEDS ORDERED: AMIODARONE INJ 450 MG in DEXTROSE 5% 241 ML IV SCH (05:30)
[2018-07-18] MEDS: MEROPENEM 1,000 MG in SODIUM CHLORIDE 0.9% 100 ML IV SCH ×3 (06:04→21:49)
[2018-07-18] MEDS: MORPHINE 4 MG/1 ML VIAL IV PRN (06:04)
[2018-07-18] MEDS: MAGNESIUM SULF RIDER 2 GM in PREMIX 1 EACH IV PRN (06:05)
[2018-07-18] MEDS ORDERED: DILTIAZEM 25 MG/5 ML VIAL IV ONE ×2 (07:09→07:20)
[2018-07-18] MEDS: metroNIDAZOLE INJ 500 MG in PREMIX 1 EACH IV SCH ×2 (07:53→09:08)
[2018-07-18] MEDS: dilTIAZem Drip 125 MG/125 ML PREMIX IV SCH ×2 (07:57→20:13)
[2018-07-18] MEDS: LEVOFLOXACIN INJ 750 MG in PREMIX 1 EACH IV SCH (08:54)
[2018-07-18] MEDS ORDERED: LACTATED RINGERS 500 ML IV ONE (08:59)
[2018-07-18] MEDS: PANTOPRAZOLE 40 MG VIAL IV SCH ×2 (09:02→21:49)
[2018-07-18] MEDS ORDERED: METOPROLOL TARTRATE 5 MG/5 ML VIAL IV ONE ×2 (09:18→09:21)
[2018-07-18 10:23] LABS: Apearance,Urine CLEAR (Clear); Bacteria,Urine Occasional /HPF (Few); Bilirubin,Urine Negative (Negative); Blood, Urine Large mg/dL (Negative); Glucose,Urine (UA) Negative (Negative); Ketones,Urine Negative (Negative); Mucus,Urine Few /LPF (Occasional); Nitrite,Urine Negative (Negative); Protein,Urine Negative; RBC,Urine 19 /HPF (0-4); Urine Color Yellow (Yellow); Urine Specific Gravity 1.012 (1.001-1.035); Urine Urobilinogen < 2.0 EU/DL (0.2-1.0); WBC,Urine 1 /HPF (0-6)
[2018-07-18] MEDS: MAGNESIUM SULF IV SCH (10:34)
[2018-07-18] MEDS: POTASSIUM CHLORIDE IV SCH ×2 (10:34→17:22)
[2018-07-18] MEDS: [UNRECOGNIZED DRUG - OTHER] IV SCH (10:34)
[2018-07-18] MEDS: FAT EMULSION 20% 250 ML IV SCH (13:27)
[2018-07-18] MEDS: AMIODARONE INJ 450 MG in DEXTROSE 5% 241 ML IV SCH (16:17)
[2018-07-18] MEDS ORDERED: DEXTROSE 10% 1,000 ML IV PRN (17:00)
[2018-07-18] MEDS ORDERED: TRACE ELEMENTS (5) 1 ML, MULTIVITAMIN INJ 10 ML, POTASSIUM CHLORIDE INJ 40 MEQ in AMINO... IV SCH (17:00)
[2018-07-18] MEDS: TRACE ELEMENTS IV SCH (17:22)
[2018-07-18] MEDS: [UNRECOGNIZED DRUG - OTHER] IV SCH (17:22)
[2018-07-18] MEDS: MULTIVITAMIN IV SCH (17:22)
[2018-07-19] MEDS: VANCOMYCIN INJ 1,000 MG in SODIUM CHLORIDE 0.9% 250 ML IV SCH (02:19)
[2018-07-19 05:18] LABS: Basophils % 0.4 % (0.0-0.8); Eosinophils # 0.3 10*3/uL (0.0-0.87); Eosinophils % 3.3 % (0.00-10.9); Hematocrit 35.1 VOL% (42.0-52.0); Hemoglobin 11.5 GM/DL (14.0-18.0); Immature Granulocytes % 0.5 %; Immature Granulocytes Absolute 0.04 #; Lymphocytes # 0.8 10*3/uL (1.4-4.0); Lymphocytes % 9.6 % (21.2-54.2); Mean Corpuscular HGB Conc 32.8 GM/DL (32-36); Mean Corpuscular Volume 87.3 FL (87-102); Mean Platelet Volume 12.2 FL (9.6-12.0); Monocytes % 10.8 % (1.7-12.7); Neutrophils % 75.4 % (38.7-73.9); Platelet Count 87 T/CUMM (130-400); Red Blood Count 4.02 MC/CUMM (3.8-5.5); Red Cell Distribution Width 13.8 % (9.3-17.3); White Blood Count 8.3 T/CUMM (4-12)
[2018-07-19] MEDS: AMIODARONE INJ 450 MG in DEXTROSE 5% 241 ML IV SCH (05:29)
[2018-07-19] MEDS: [UNRECOGNIZED DRUG - OTHER] IV SCH (05:33)
[2018-07-19] MEDS: POTASSIUM CHLORIDE IV SCH ×2 (05:33→17:30)
[2018-07-19] MEDS: MAGNESIUM SULF IV SCH (05:33)
[2018-07-19] MEDS: MEROPENEM 1,000 MG in SODIUM CHLORIDE 0.9% 100 ML IV SCH (05:37)
[2018-07-19 05:40] LABS: Albumin 1.8 G/DL (3.4-5.0); Bilirubin,Total 1.3 MG/DL (0.2-1.0); Calcium 7.4 MG/DL (8.5-10.1); Osmolality,Calculated 280.5 MOS/KG (273-304); Total Protein 4.8 G/DL (6.4-8.3)
[2018-07-19 05:48] LABS: Band Neutrophils 7 % (0-10); Eosinophils 2 % (0-10); Lymphocytes 12 % (20-55); Segmented Neutrophils 68 % (50-85); Total Cells Counted 100
[2018-07-19 05:49] LABS: Platelet Estimate Decreased
[2018-07-19] MEDS: AMIODARONE 200 MG TABLET PO SCH ×2 (09:50→22:01)
[2018-07-19] MEDS: PANTOPRAZOLE 40 MG VIAL IV SCH ×2 (09:50→22:00)
[2018-07-19] MEDS: LEVOFLOXACIN INJ 750 MG in PREMIX 1 EACH IV SCH (10:00)
[2018-07-19] MEDS: cefTAZidime 2,000 MG in SYRINGE 1 EACH IV SCH ×2 (12:40→21:54)
[2018-07-19] MEDS: dilTIAZem Drip 125 MG/125 ML PREMIX IV SCH ×2 (14:18→20:39)
[2018-07-19] MEDS: FAT EMULSION 20% 250 ML IV SCH (14:30)
[2018-07-19] MEDS: MULTIVITAMIN IV SCH (17:30)
[2018-07-19] MEDS: [UNRECOGNIZED DRUG - OTHER] IV SCH (17:30)
[2018-07-19] MEDS: TRACE ELEMENTS IV SCH (17:30)
[2018-07-20] MEDS: [UNRECOGNIZED DRUG - OTHER] IV SCH (02:25)
[2018-07-20] MEDS: MAGNESIUM SULF IV SCH (02:25)
[2018-07-20] MEDS: POTASSIUM CHLORIDE IV SCH (02:25)
[2018-07-20] MEDS: cefTAZidime 2,000 MG in SYRINGE 1 EACH IV SCH (04:36)
[2018-07-20 05:02] LABS: Basophils % 0.3 % (0.0-0.8); Eosinophils # 0.1 10*3/uL (0.0-0.87); Eosinophils % 1.6 % (0.00-10.9); Hematocrit 36.2 VOL% (42.0-52.0); Hemoglobin 12.2 GM/DL (14.0-18.0); Immature Granulocytes % 0.9 %; Immature Granulocytes Absolute 0.07 #; Lymphocytes # 0.6 10*3/uL (1.4-4.0); Lymphocytes % 7.7 % (21.2-54.2); Mean Corpuscular HGB Conc 33.7 GM/DL (32-36); Mean Corpuscular Volume 86.6 FL (87-102); Mean Platelet Volume 12.3 FL (9.6-12.0); Monocytes % 10.3 % (1.7-12.7); Neutrophils % 79.2 % (38.7-73.9); Platelet Count 95 T/CUMM (130-400); Red Blood Count 4.18 MC/CUMM (3.8-5.5); Red Cell Distribution Width 13.8 % (9.3-17.3); White Blood Count 7.7 T/CUMM (4-12)
[2018-07-20 05:34] LABS: Albumin 1.9 G/DL (3.4-5.0); Bilirubin,Total 0.7 MG/DL (0.2-1.0); Osmolality,Calculated 274.7 MOS/KG (273-304); Total Protein 5.2 G/DL (6.4-8.3)
[2018-07-20 06:29] LABS: Band Neutrophils 1 % (0-10); Eosinophils 3 % (0-10); Lymphocytes 12 % (20-55); Segmented Neutrophils 83 % (50-85); Total Cells Counted 100
[2018-07-20 06:30] LABS: Anisocytosis 1+; Platelet Estimate Decreased
[2018-07-20] MEDS: AMIODARONE 200 MG TABLET PO SCH ×2 (08:44→20:21)
[2018-07-20] MEDS: MEROPENEM 1,000 MG in SODIUM CHLORIDE 0.9% 100 ML IV SCH ×3 (08:45→23:30)
[2018-07-20] MEDS: PANTOPRAZOLE 40 MG VIAL IV SCH (08:45)
[2018-07-20] MEDS: PANTOPRAZOLE 40 MG TABLET PO SCH (11:13)
[2018-07-20] MEDS: ASPIRIN EC 325 MG TABLET PO SCH (13:00)
[2018-07-20] MEDS: METOPROLOL TARTRATE 25 MG TABLET PO SCH (20:25)
[2018-07-21 04:33] LABS: Basophils # 0.1 10*3/uL (0.0-0.2); Basophils % 0.5 % (0.0-0.8); Eosinophils # 0.3 10*3/uL (0.0-0.87); Eosinophils % 2.5 % (0.00-10.9); Hematocrit 39.6 VOL% (42.0-52.0); Hemoglobin 12.6 GM/DL (14.0-18.0); Immature Granulocytes % 0.9 %; Immature Granulocytes Absolute 0.09 #; Lymphocytes # 1.4 10*3/uL (1.4-4.0); Lymphocytes % 13.2 % (21.2-54.2); Mean Corpuscular HGB Conc 31.8 GM/DL (32-36); Mean Corpuscular Volume 89.4 FL (87-102); Mean Platelet Volume 12.2 FL (9.6-12.0); Monocytes % 11.4 % (1.7-12.7); Neutrophils % 71.5 % (38.7-73.9); Platelet Count 131 T/CUMM (130-400); Red Blood Count 4.43 MC/CUMM (3.8-5.5); Red Cell Distribution Width 14.1 % (9.3-17.3); White Blood Count 10.2 T/CUMM (4-12)
[2018-07-21 04:46] LABS: Calcium 8.3 MG/DL (8.5-10.1); Osmolality,Calculated 277.4 MOS/KG (273-304)
[2018-07-21 04:50] LABS: Prealbumin 9.8 MG/DL (20-40)
[2018-07-21 05:08] LABS: Anisocytosis 1+
[2018-07-21 05:09] LABS: Platelet Estimate Decreased
[2018-07-21] MEDS: MEROPENEM 1,000 MG in SODIUM CHLORIDE 0.9% 100 ML IV SCH ×3 (06:05→22:50)
[2018-07-21] MEDS: ASPIRIN EC 325 MG TABLET PO SCH (08:54)
[2018-07-21] MEDS: METOPROLOL TARTRATE 25 MG TABLET PO SCH ×2 (08:54→20:27)
[2018-07-21] MEDS: AMIODARONE 200 MG TABLET PO SCH ×2 (08:54→20:28)
[2018-07-21] MEDS: PANTOPRAZOLE 40 MG TABLET PO SCH (08:54)
[2018-07-21] MEDS: MAGNESIUM SULF RIDER 2 GM in PREMIX 1 EACH IV PRN (09:03)
[2018-07-21] MEDS: POTASSIUM CHLORIDE RIDER 20 MEQ in PREMIX 1 EACH IV PRN (09:04)
[2018-07-22 05:02] LABS: Basophils % 0.4 % (0.0-0.8); Eosinophils # 0.3 10*3/uL (0.0-0.87); Hematocrit 35.3 VOL% (42.0-52.0); Hemoglobin 11.5 GM/DL (14.0-18.0); Immature Granulocytes % 1.2 %; Immature Granulocytes Absolute 0.12 #; Lymphocytes # 1.2 10*3/uL (1.4-4.0); Mean Corpuscular HGB Conc 32.6 GM/DL (32-36); Mean Corpuscular Volume 88.7 FL (87-102); Mean Platelet Volume 12.1 FL (9.6-12.0); Monocytes % 8.6 % (1.7-12.7); Neutrophils % 74.8 % (38.7-73.9); Platelet Count 142 T/CUMM (130-400); Red Blood Count 3.98 MC/CUMM (3.8-5.5); Red Cell Distribution Width 14.1 % (9.3-17.3); White Blood Count 9.6 T/CUMM (4-12)
[2018-07-22 05:28] LABS: Osmolality,Calculated 280.1 MOS/KG (273-304)
[2018-07-22] MEDS: POTASSIUM CHLORIDE RIDER 20 MEQ in PREMIX 1 EACH IV PRN ×2 (05:43→10:52)
[2018-07-22] MEDS: MEROPENEM 1,000 MG in SODIUM CHLORIDE 0.9% 100 ML IV SCH ×3 (07:46→22:48)
[2018-07-22] MEDS: AMIODARONE 200 MG TABLET PO SCH (10:52)
[2018-07-22] MEDS: ASPIRIN EC 325 MG TABLET PO SCH (10:52)
[2018-07-22] MEDS: PANTOPRAZOLE 40 MG TABLET PO SCH (10:52)
[2018-07-22] MEDS: METOPROLOL TARTRATE 25 MG TABLET PO SCH ×2 (10:52→20:49)
[2018-07-23 04:58] LABS: Basophils % 0.3 % (0.0-0.8); Eosinophils # 0.2 10*3/uL (0.0-0.87); Eosinophils % 1.2 % (0.00-10.9); Hematocrit 25.1 VOL% (42.0-52.0); Hemoglobin 7.5 GM/DL (14.0-18.0); Immature Granulocytes % 8.1 %; Immature Granulocytes Absolute 1.08 #; Lymphocytes # 2.4 10*3/uL (1.4-4.0); Lymphocytes % 17.9 % (21.2-54.2); Mean Corpuscular HGB Conc 29.9 GM/DL (32-36); Mean Corpuscular Volume 95.8 FL (87-102); Mean Platelet Volume 11.6 FL (9.6-12.0); Monocytes % 9.8 % (1.7-12.7); NRBC # 0.02 10*3/uL; Neutrophils % 62.7 % (38.7-73.9); Platelet Count 318 T/CUMM (130-400); Red Blood Count 2.62 MC/CUMM (3.8-5.5); Red Cell Distribution Width 16.9 % (9.3-17.3); White Blood Count 13.3 T/CUMM (4-12)
[2018-07-23 05:33] LABS: Calcium 7.4 MG/DL (8.5-10.1); Osmolality,Calculated 278.4 MOS/KG (273-304)
[2018-07-23 05:42] LABS: Band Neutrophils 2 % (0-10); Eosinophils 2 % (0-10); Lymphocytes 21 % (20-55); Segmented Neutrophils 66 % (50-85); Total Cells Counted 100
[2018-07-23 05:43] LABS: Hypochromasia 1+; Platelet Estimate Normal
[2018-07-23] MEDS: POTASSIUM CHLORIDE RIDER 20 MEQ in PREMIX 1 EACH IV PRN ×2 (06:43→12:12)
[2018-07-23] MEDS: METOPROLOL TARTRATE 25 MG TABLET PO SCH ×2 (09:01→20:30)
[2018-07-23] MEDS: MEROPENEM 1,000 MG in SODIUM CHLORIDE 0.9% 100 ML IV SCH ×2 (09:01→16:55)
[2018-07-23] MEDS: PANTOPRAZOLE 40 MG TABLET PO SCH (09:02)
[2018-07-23] MEDS: AMIODARONE 200 MG TABLET PO SCH (09:02)
[2018-07-23] MEDS: ASPIRIN EC 325 MG TABLET PO SCH (09:02)
[2018-07-23 13:03] LABS: Basophils % 0.5 % (0.0-0.8); Eosinophils # 0.4 10*3/uL (0.0-0.87); Hematocrit 37.7 VOL% (42.0-52.0); Immature Granulocytes % 1.2 %; Lymphocytes # 1.4 10*3/uL (1.4-4.0); Lymphocytes % 16.3 % (21.2-54.2); Mean Corpuscular HGB Conc 31.8 GM/DL (32-36); Mean Corpuscular Volume 89.5 FL (87-102); Platelet Count 250 T/CUMM (130-400); Red Blood Count 4.21 MC/CUMM (3.8-5.5); Red Cell Distribution Width 14.1 % (9.3-17.3); White Blood Count 8.3 T/CUMM (4-12)
[2018-07-23 14:45] LABS: Band Neutrophils 1 % (0-10); Eosinophils 4 % (0-10); Hypochromasia 1+; Lymphocytes 14 % (20-55); Platelet Estimate Normal; Segmented Neutrophils 69 % (50-85)
[2018-07-23 14:46] LABS: Total Cells Counted 100
[2018-07-23 14:47] LABS: Ovalocytes Few
[2018-07-23] MEDS ORDERED: POTASSIUM CHLORIDE 20 MEQ TABLET PO ONE (16:02)
[2018-07-24] MEDS: MEROPENEM 1,000 MG in SODIUM CHLORIDE 0.9% 100 ML IV SCH ×2 (00:16→08:33)
[2018-07-24 02:44] LABS: Basophils # 0.1 10*3/uL (0.0-0.2); Basophils % 0.7 % (0.0-0.8); Eosinophils # 0.4 10*3/uL (0.0-0.87); Hematocrit 35.3 VOL% (42.0-52.0); Hemoglobin 11.2 GM/DL (14.0-18.0); Immature Granulocytes % 1.5 %; Lymphocytes # 1.1 10*3/uL (1.4-4.0); Lymphocytes % 16.5 % (21.2-54.2); Mean Corpuscular HGB Conc 31.7 GM/DL (32-36); Mean Corpuscular Volume 88.9 FL (87-102); Mean Platelet Volume 10.9 FL (9.6-12.0); Monocytes % 8.7 % (1.7-12.7); Neutrophils % 66.6 % (38.7-73.9); Platelet Count 245 T/CUMM (130-400); Red Blood Count 3.97 MC/CUMM (3.8-5.5); Red Cell Distribution Width 13.8 % (9.3-17.3); White Blood Count 6.9 T/CUMM (4-12)
[2018-07-24 03:02] LABS: Calcium 8.2 MG/DL (8.5-10.1); Osmolality,Calculated 279.1 MOS/KG (273-304)
[2018-07-24 04:01] LABS: Band Neutrophils 4 % (0-10); Eosinophils 7 % (0-10); Lymphocytes 17 % (20-55); Segmented Neutrophils 64 % (50-85); Total Cells Counted 100
[2018-07-24 04:02] LABS: Platelet Estimate Normal
[2018-07-24] MEDS: MAGNESIUM SULF RIDER 2 GM in PREMIX 1 EACH IV PRN (06:54)
[2018-07-24 08:09] VITALS: BP 152/80
[2018-07-24] MEDS: ASPIRIN EC 325 MG TABLET PO SCH (08:33)
[2018-07-24] MEDS: METOPROLOL TARTRATE 25 MG TABLET PO SCH (08:33)
[2018-07-24] MEDS: AMIODARONE 200 MG TABLET PO SCH (08:33)
[2018-07-24] MEDS: PANTOPRAZOLE 40 MG TABLET PO SCH (08:33)
[2018-07-24] MEDS ORDERED: MAGNESIUM CHLORIDE 64 MG TABLET PO SCH (09:00)
[2018-07-24] MEDS ORDERED: HEPARIN LOCK FLUSH 500 UNIT/5 ML SYRINGE IV ONE ×2 (10:24→10:36)
[2018-07-24] MEDS ORDERED: CEFUROXIME 500 MG TABLET PO SCH (21:00)
[2018-07-25] MEDS ORDERED: POTASSIUM CHLORIDE 20 MEQ TABLET PO SCH (09:00)
== END 2018-07-24 11:25 | disposition home health service (06) | DRG 326 ==
LOC: N.ED 13:57 → N.EDINP 18:59 → SUATTDRO 18:59 → N.4E 19:23 → N.ICU 07-17 15:44 → N.4E 07-20 13:10
PROVIDERS: ADMIT Internal Medicine; ATTEND Hospitalist

== ENCOUNTER 2020-05-16 14:43 | Observation (INO) ==
[2020-05-16 17:51] LABS: Albumin 1.5 G/DL (3.4-5.0); Bilirubin,Total 0.8 MG/DL (0.2-1.0); Calcium 7.9 MG/DL (8.5-10.1); Osmolality,Calculated 264.4 MOS/KG (273-304); Potassium 3.3 MMOL/L (3.5-5.1); Total Protein 6.3 G/DL (5.0-7.5)
[2020-05-16 18:00] LABS: Basophils # 0.1 10*3/uL (0.0-0.2); Basophils % 0.4 % (0.0-0.8); Eosinophils # 0.1 10*3/uL (0.0-0.87); Eosinophils % 0.9 % (0.00-10.9); Hematocrit 21.9 VOL% (42.0-52.0); Immature Granulocytes % 0.6 %; Immature Granulocytes Absolute 0.07 #; Lymphocytes # 0.4 10*3/uL (1.4-4.0); Lymphocytes % 3.3 % (21.2-54.2); Mean Corpuscular HGB Conc 28.8 GM/DL (32-36); Mean Corpuscular Volume 81.4 FL (87-102); Mean Platelet Volume 9.2 FL (9.6-12.0); Neutrophils % 83.8 % (38.7-73.9); Platelet Count 355 T/CUMM (130-400); Red Blood Count 2.69 MC/CUMM (3.8-5.5); Red Cell Distribution Width 18.7 % (9.3-17.3); White Blood Count 11.7 T/CUMM (4-12)
[2020-05-16 18:06] LABS: Hemoglobin 6.3 GM/DL (14.0-18.0)
[2020-05-16] MEDS ORDERED: ONDANSETRON 4 MG/2 ML VIAL IV PRN (18:28)
[2020-05-16] MEDS ORDERED: DEXTROSE 50% 25 GM/50 ML VIAL IV PRN (18:28)
[2020-05-16] MEDS ORDERED: SODIUM CHLORIDE 0.9% 1,000 ML IV PRN (18:28)
[2020-05-16] MEDS ORDERED: GLUCAGON 1 MG VIAL IM PRN (18:28)
[2020-05-16] MEDS ORDERED: POTASSIUM CHLORIDE 20 MEQ TABLET PO ONE (19:24)
[2020-05-16 19:33] LABS: Band Neutrophils 24 % (0-10); Eosinophils 2 % (0-10); Lymphocytes 3 % (20-55); Platelet Estimate Adequate; Segmented Neutrophils 67 % (50-85); Total Cells Counted 100
[2020-05-16 19:34] LABS: Anisocytosis Slight; Hypochromasia 1+
[2020-05-16 19:35] LABS: Microcytosis 1+
[2020-05-17 07:13] LABS: Hematocrit 25.1 VOL% (42.0-52.0); Hemoglobin 7.9 GM/DL (14.0-18.0)
[2020-05-17] MEDS: POTASSIUM CHLORIDE 20 MEQ TABLET PO SCH (09:34)
[2020-05-17] MEDS: METOPROLOL TARTRATE 25 MG TABLET PO SCH (09:34)
[2020-05-17] MEDS: FUROSEMIDE 40 MG TABLET PO SCH (09:34)
[2020-05-17] MEDS: PANTOPRAZOLE 40 MG TABLET PO SCH (09:34)
[2020-05-18 08:35] LABS: Basophils # 0.1 10*3/uL (0.0-0.2); Basophils % 0.5 % (0.0-0.8); Eosinophils # 0.2 10*3/uL (0.0-0.87); Eosinophils % 1.2 % (0.00-10.9); Hematocrit 29.7 VOL% (42.0-52.0); Hemoglobin 8.9 GM/DL (14.0-18.0); Immature Granulocytes % 0.5 %; Immature Granulocytes Absolute 0.07 #; Lymphocytes # 0.5 10*3/uL (1.4-4.0); Lymphocytes % 3.9 % (21.2-54.2); Mean Corpuscular Volume 82.3 FL (87-102); Mean Platelet Volume 9.1 FL (9.6-12.0); Monocytes % 11.7 % (1.7-12.7); Neutrophils % 82.2 % (38.7-73.9); Platelet Count 335 T/CUMM (130-400); Red Blood Count 3.61 MC/CUMM (3.8-5.5); Red Cell Distribution Width 17.2 % (9.3-17.3); White Blood Count 12.7 T/CUMM (4-12)
[2020-05-18 08:50] LABS: Alanine Aminotransferase < 9 U/L (16-61); Albumin 1.4 G/DL (3.4-5.0); Alkaline Phosphatase 282 U/L (45-117); Aspartate Amino Transferase 38 U/L (0-37); Blood Urea Nitrogen 8 MG/DL (7-18); Calcium 7.9 MG/DL (8.5-10.1); Carbon Dioxide 30 MMOL/L (21-32); Estimated Glom Filtration Rate 129 ML/MIN; Glucose 104 MG/DL (74-106); Osmolality,Calculated 263.4 MOS/KG (273-304); Potassium 3.4 MMOL/L (3.5-5.1); Sodium 133 MMOL/L (136-145); Total Protein 5.6 G/DL (5.0-7.5)
[2020-05-18 09:19] LABS: Band Neutrophils 2 % (0-10); Basophilic Stippling Slight; Eosinophils 4 % (0-10); Hypochromasia 1+; Lymphocytes 1 % (20-55); Platelet Estimate Normal; Segmented Neutrophils 84 % (50-85); Total Cells Counted 100
[2020-05-18 09:20] LABS: Anisocytosis 2+
[2020-05-18] MEDS ORDERED: POTASSIUM CHLORIDE 20 MEQ TABLET PO ONE (09:52)
[2020-05-18] MEDS: PANTOPRAZOLE 40 MG TABLET PO SCH (10:01)
[2020-05-18] MEDS: METOPROLOL TARTRATE 25 MG TABLET PO SCH (10:01)
[2020-05-18] MEDS: FUROSEMIDE 40 MG TABLET PO SCH (10:02)
[2020-05-18] MEDS: POTASSIUM CHLORIDE 20 MEQ TABLET PO SCH (10:02)
[2020-05-18 11:57] VITALS: BP 125/66
== END 2020-05-18 12:50 | disposition home or self-care (01) ==
LOC: N.EDINP 14:43 → N.ED 14:43 → N.4E 20:00
PROVIDERS: ADMIT Internal Medicine; ATTEND Internal Medicine

== ENCOUNTER 2020-06-05 11:57 | Inpatient (IN) ==
[2020-06-05 14:18] LABS: Basophils # 0.1 10*3/uL (0.0-0.2); Basophils % 0.3 % (0.0-0.8); Eosinophils % 0.1 % (0.00-10.9); Hemoglobin 7.9 GM/DL (14.0-18.0); Immature Granulocytes Absolute 0.24 #; Lymphocytes # 0.4 10*3/uL (1.4-4.0); Lymphocytes % 1.8 % (21.2-54.2); Mean Corpuscular HGB Conc 29.3 GM/DL (32-36); Mean Corpuscular Volume 79.4 FL (87-102); Monocytes % 7.1 % (1.7-12.7); Neutrophils % 89.7 % (38.7-73.9); Platelet Count 372 T/CUMM (130-400)
[2020-06-05 14:31] LABS: INR 1.3; Partial Thromboplastin Time 32.5 SECS (23.9-33.8)
[2020-06-05 14:34] LABS: Albumin 1.5 G/DL (3.4-5.0); Bilirubin,Total 0.9 MG/DL (0.2-1.0); Calcium 8.1 MG/DL (8.5-10.1); Osmolality,Calculated 249.5 MOS/KG (273-304); Potassium 4.1 MMOL/L (3.5-5.1); Total Protein 6.7 G/DL (6.4-8.2)
[2020-06-05] MEDS ORDERED: ALBUTEROL 2.5 MG/3 ML NEB RESP TX PRN (16:05)
[2020-06-05] MEDS ORDERED: ONDANSETRON 4 MG/2 ML VIAL IV PRN (16:05)
[2020-06-05] MEDS ORDERED: SODIUM CHLORIDE 0.9% 1,000 ML IV STA (16:08)
[2020-06-05] MEDS ORDERED: AZITHROMYCIN INJ 500 MG in SODIUM CHLORIDE 0.9% 250 ML IV ONE (17:07)
[2020-06-05 17:10] LABS: Band Neutrophils 8 % (0-10); Lymphocytes 2 % (20-55); Platelet Estimate Normal; Segmented Neutrophils 88 % (50-85); Total Cells Counted 100
[2020-06-05] MEDS: NOREPINEPHRINE 8 MG in SODIUM CHLORIDE 0.9% 242 ML IV SCH (18:14)
[2020-06-05] MEDS: FAMOTIDINE 20 MG/2 ML VIAL IV SCH (18:52)
[2020-06-05] MEDS: cefTRIAXone 1,000 MG in SODIUM CHLORIDE 0.9% 100 ML IV SCH (19:00)
[2020-06-05] MEDS: methylPREDNISolone SOD SUC 40 MG/1 ML VIAL IV SCH (19:02)
[2020-06-05] MEDS: ALBUMIN 25% 25 GM in PREMIX 1 EACH IV SCH (20:00)
[2020-06-05 21:33] LABS: Bacteria,Urine Occasional /HPF (Few); Bilirubin,Urine Negative (Negative); Blood, Urine Small mg/dL (Negative); Glucose,Urine (UA) Negative (Negative); Hyaline Casts,Urine 7 /LPF (0-3); Ketones,Urine Negative (Negative); Mucus,Urine Occasional /LPF (Occasional); Nitrite,Urine Negative (Negative); Protein,Urine Negative; RBC,Urine 5 /HPF (0-4); Squamous Epithelial Cell,Urine Occasional /HPF (0-10); Urine Appearance Slightly Hazy (Clear); Urine Color Amber (Yellow); Urine Specific Gravity 1.014 (1.001-1.035); Urine Urobilinogen < 2.0 EU/DL (0.2-1.0); WBC,Urine 42 /HPF (0-6)
[2020-06-06] MEDS: methylPREDNISolone SOD SUC 40 MG/1 ML VIAL IV SCH ×3 (00:55→17:55)
[2020-06-06] MEDS: ALBUMIN 25% 25 GM in PREMIX 1 EACH IV SCH ×3 (03:10→22:01)
[2020-06-06] MEDS: FAMOTIDINE 20 MG/2 ML VIAL IV SCH ×2 (03:38→15:36)
[2020-06-06 04:53] LABS: Basophils % 0.1 % (0.0-0.8); Hematocrit 20.5 VOL% (42.0-52.0); Immature Granulocytes % 0.6 %; Immature Granulocytes Absolute 0.08 #; Lymphocytes # 0.2 10*3/uL (1.4-4.0); Lymphocytes % 1.5 % (21.2-54.2); Mean Corpuscular HGB Conc 30.2 GM/DL (32-36); Mean Corpuscular Volume 77.4 FL (87-102); Mean Platelet Volume 9.2 FL (9.6-12.0); Monocytes % 2.9 % (1.7-12.7); Neutrophils % 94.9 % (38.7-73.9); Platelet Count 217 T/CUMM (130-400); Red Blood Count 2.65 MC/CUMM (3.8-5.5); Red Cell Distribution Width 17.8 % (9.3-17.3); White Blood Count 13.9 T/CUMM (4-12)
[2020-06-06 05:01] LABS: Hemoglobin 6.2 GM/DL (14.0-18.0)
[2020-06-06 05:16] LABS: Lymphocytes 1 % (20-55); Segmented Neutrophils 95 % (50-85); Total Cells Counted 100
[2020-06-06 05:17] LABS: Hypochromasia 2+; Microcytosis 1+; Platelet Estimate Adequate
[2020-06-06 05:30] LABS: Albumin 1.6 G/DL (3.4-5.0); Bilirubin,Total 1.9 MG/DL (0.2-1.0); Calcium 7.7 MG/DL (8.5-10.1); Osmolality,Calculated 260.8 MOS/KG (273-304); Potassium 4.4 MMOL/L (3.5-5.1); Risk Ratio 12.1; Total Protein 5.4 G/DL (6.4-8.2); VLDL CHOLESTEROL 18.8 MG/DL
[2020-06-06] MEDS ORDERED: SODIUM CHLORIDE 0.9% 1,000 ML IV PRN (06:22)
[2020-06-06] MEDS ORDERED: MAGNESIUM SULF RIDER 2 GM in PREMIX 1 EACH IV ONE (11:03)
[2020-06-06] MEDS ORDERED: FUROSEMIDE 40 MG/4 ML VIAL IV ONE (15:19)
[2020-06-06] MEDS: NOREPINEPHRINE 8 MG in SODIUM CHLORIDE 0.9% 242 ML IV SCH (16:59)
[2020-06-06] MEDS: cefTRIAXone 1,000 MG in SODIUM CHLORIDE 0.9% 100 ML IV SCH (18:02)
[2020-06-06] MEDS: AZITHROMYCIN INJ 250 MG in SODIUM CHLORIDE 0.9% 250 ML IV SCH (18:19)
[2020-06-07] MEDS: methylPREDNISolone SOD SUC 40 MG/1 ML VIAL IV SCH ×3 (01:02→18:47)
[2020-06-07] MEDS: FAMOTIDINE 20 MG/2 ML VIAL IV SCH ×2 (05:15→17:54)
[2020-06-07] MEDS: ALBUMIN 25% 25 GM in PREMIX 1 EACH IV SCH ×3 (05:15→17:55)
[2020-06-07 07:32] LABS: Basophils % 0.1 % (0.0-0.8); Immature Granulocytes % 0.7 %; Immature Granulocytes Absolute 0.12 #; Lymphocytes # 0.3 10*3/uL (1.4-4.0); Lymphocytes % 1.5 % (21.2-54.2); Mean Corpuscular HGB Conc 31.1 GM/DL (32-36); Mean Corpuscular Volume 78.5 FL (87-102); Mean Platelet Volume 9.2 FL (9.6-12.0); Monocytes % 4.4 % (1.7-12.7); Neutrophils % 93.3 % (38.7-73.9); Platelet Count 215 T/CUMM (130-400); Red Cell Distribution Width 17.8 % (9.3-17.3); White Blood Count 17.5 T/CUMM (4-12)
[2020-06-07 07:40] LABS: Hemoglobin 8.4 GM/DL (14.0-18.0); Red Blood Count 3.44 MC/CUMM (3.8-5.5)
[2020-06-07 07:54] LABS: Anisocytosis 1+; Band Neutrophils 3 % (0-10); Platelet Estimate Normal; Segmented Neutrophils 94 % (50-85); Total Cells Counted 100
[2020-06-07 07:55] LABS: Macrocytosis Slight
[2020-06-07 07:56] LABS: Albumin 2.3 G/DL (3.4-5.0); Bilirubin,Total 1.5 MG/DL (0.2-1.0); Calcium 8.3 MG/DL (8.5-10.1); Osmolality,Calculated 262.1 MOS/KG (273-304); Potassium 3.9 MMOL/L (3.5-5.1); Total Protein 5.9 G/DL (6.4-8.2)
[2020-06-07] MEDS ORDERED: SODIUM CHLORIDE 0.9% 1,000 ML IV PRN ×2 (09:50→10:02)
[2020-06-07] MEDS ORDERED: ALBUMIN 25% 25 GM in PREMIX 1 EACH IV ONE (17:00)
[2020-06-07] MEDS: NOREPINEPHRINE 8 MG in SODIUM CHLORIDE 0.9% 242 ML IV SCH (17:52)
[2020-06-07] MEDS: cefTRIAXone 1,000 MG in SODIUM CHLORIDE 0.9% 100 ML IV SCH (18:47)
[2020-06-07] MEDS: AZITHROMYCIN INJ 250 MG in SODIUM CHLORIDE 0.9% 250 ML IV SCH (20:21)
[2020-06-08] MEDS: methylPREDNISolone SOD SUC 40 MG/1 ML VIAL IV SCH ×2 (02:06→09:08)
[2020-06-08 05:13] LABS: Basophils % 0.1 % (0.0-0.8); Immature Granulocytes % 0.5 %; Immature Granulocytes Absolute 0.09 #; Lymphocytes # 0.3 10*3/uL (1.4-4.0); Lymphocytes % 1.5 % (21.2-54.2); Mean Corpuscular HGB Conc 31.6 GM/DL (32-36); Mean Corpuscular Volume 78.6 FL (87-102); Mean Platelet Volume 9.2 FL (9.6-12.0); Monocytes % 5.1 % (1.7-12.7); Neutrophils % 92.8 % (38.7-73.9); Platelet Count 120 T/CUMM (130-400); Red Blood Count 4.07 MC/CUMM (3.8-5.5); Red Cell Distribution Width 16.9 % (9.3-17.3); White Blood Count 16.5 T/CUMM (4-12)
[2020-06-08 05:41] LABS: Hemoglobin 10.1 GM/DL (14.0-18.0)
[2020-06-08] MEDS: FAMOTIDINE 20 MG/2 ML VIAL IV SCH (05:44)
[2020-06-08 07:04] LABS: Eosinophils 1 % (0-10); Hypochromasia Slight; Platelet Estimate Normal; Segmented Neutrophils 99 % (50-85); Total Cells Counted 100
[2020-06-08 07:05] LABS: Microcytosis 1+
[2020-06-08 12:03] VITALS: BP 126/72
[2020-06-08] MEDS ORDERED: HEPARIN LOCK FLUSH 500 UNIT/5 ML SYRINGE IV ONE (12:55)
== END 2020-06-08 13:50 | disposition home or self-care (01) | DRG 375 ==
LOC: N.ED 11:57 → SUATTDRO 16:05 → N.EDINP 16:05 → N.CC 17:49 → N.4E 06-06 15:19
PROVIDERS: ADMIT Internal Medicine; ATTEND Hospitalist

== ENCOUNTER 2020-06-21 09:06 | Inpatient (IN) ==
[2020-06-21] MEDS ORDERED: FUROSEMIDE 40 MG/4 ML VIAL IV STA (09:37)
[2020-06-21 09:44] LABS: Basophils # 0.1 10*3/uL (0.0-0.2); Basophils % 0.4 % (0.0-0.8); Eosinophils # 0.1 10*3/uL (0.0-0.87); Hematocrit 37.1 VOL% (42.0-52.0); Hemoglobin 11.2 GM/DL (14.0-18.0); Immature Granulocytes % 0.6 %; Immature Granulocytes Absolute 0.08 #; Lymphocytes # 0.4 10*3/uL (1.4-4.0); Lymphocytes % 3.5 % (21.2-54.2); Mean Corpuscular HGB Conc 30.2 GM/DL (32-36); Mean Corpuscular Volume 81.5 FL (87-102); Mean Platelet Volume 9.3 FL (9.6-12.0); Monocytes % 8.3 % (1.7-12.7); Neutrophils % 86.2 % (38.7-73.9); Platelet Count 352 T/CUMM (130-400); Red Blood Count 4.55 MC/CUMM (3.8-5.5); Red Cell Distribution Width 19.7 % (9.3-17.3); White Blood Count 12.5 T/CUMM (4-12)
[2020-06-21 09:52] LABS: INR 1.3; PT Patient Result 13.6 SECS (9.8-11.9); Partial Thromboplastin Time 32.6 SECS (23.9-33.8)
[2020-06-21 10:03] LABS: Alanine Aminotransferase 15 U/L (16-61); Albumin 1.7 G/DL (3.4-5.0); Alkaline Phosphatase 685 U/L (45-117); Amylase 12 U/L (25-115); Aspartate Amino Transferase 70 U/L (0-37); Blood Urea Nitrogen 11 MG/DL (7-18); Calcium 8.5 MG/DL (8.5-10.1); Carbon Dioxide 25 MMOL/L (21-32); Eosinophils 1 % (0-10); Estimated Glom Filtration Rate 111 ML/MIN; Glucose 67 MG/DL (74-106); Lymphocytes 3 % (20-55); Osmolality,Calculated 256.8 MOS/KG (273-304); Potassium 4.2 MMOL/L (3.5-5.1); Segmented Neutrophils 91 % (50-85); Sodium 130 MMOL/L (136-145); Total Cells Counted 100; Total Protein 6.4 G/DL (6.4-8.2); Troponin I < 0.015 NG/ML (0.00-0.045)
[2020-06-21 10:04] LABS: Hypochromasia Slight; Microcytosis Slight; Platelet Estimate Adequate
[2020-06-21] MEDS ORDERED: MORPHINE 4 MG/1 ML VIAL IV PRN (12:11)
[2020-06-21] MEDS ORDERED: GLUCAGON 1 MG VIAL IM PRN (12:11)
[2020-06-21] MEDS ORDERED: ONDANSETRON 4 MG/2 ML VIAL IV PRN (12:11)
[2020-06-21] MEDS ORDERED: ACETAMINOPHEN 325 MG TABLET PO PRN (12:11)
[2020-06-21] MEDS ORDERED: ALBUMIN 25% 50 GM/200 ML VIAL IV ONE (12:15)
[2020-06-21 13:02] LABS: Bacteria,Urine Occasional /HPF (Few); Bilirubin,Urine Negative (Negative); Blood, Urine Small mg/dL (Negative); Glucose,Urine (UA) Negative (Negative); Ketones,Urine Negative (Negative); Mucus,Urine Occasional /LPF (Occasional); Nitrite,Urine Negative (Negative); Protein,Urine Negative; RBC,Urine 2 /HPF (0-4); Squamous Epithelial Cell,Urine Occasional /HPF (0-10); Urine Appearance CLEAR (Clear); Urine Color Yellow (Yellow); Urine Specific Gravity 1.004 (1.001-1.035); Urine Urobilinogen < 2.0 EU/DL (0.2-1.0); WBC,Urine 5 /HPF (0-6)
[2020-06-21] MEDS: PANTOPRAZOLE 40 MG TABLET PO SCH (13:48)
[2020-06-21] MEDS ORDERED: FUROSEMIDE 40 MG/4 ML VIAL IV SCH (16:00)
[2020-06-22 06:13] LABS: Osmolality,Calculated 254.1 MOS/KG (273-304); Potassium 3.7 MMOL/L (3.5-5.1)
[2020-06-22] MEDS: PANTOPRAZOLE 40 MG TABLET PO SCH (08:00)
[2020-06-22] MEDS ORDERED: ALBUMIN 25% 50 GM/200 ML VIAL IV ONE (14:25)
[2020-06-22] MEDS ORDERED: FUROSEMIDE 40 MG/4 ML VIAL IV ONE (14:25)
[2020-06-23 05:24] LABS: Basophils # 0.1 10*3/uL (0.0-0.2); Basophils % 0.5 % (0.0-0.8); Eosinophils # 0.2 10*3/uL (0.0-0.87); Eosinophils % 1.6 % (0.00-10.9); Hematocrit 30.2 VOL% (42.0-52.0); Hemoglobin 9.2 GM/DL (14.0-18.0); Immature Granulocytes % 0.8 %; Immature Granulocytes Absolute 0.09 #; Lymphocytes # 0.4 10*3/uL (1.4-4.0); Lymphocytes % 3.6 % (21.2-54.2); Mean Corpuscular HGB Conc 30.5 GM/DL (32-36); Mean Corpuscular Volume 81.6 FL (87-102); Mean Platelet Volume 10.4 FL (9.6-12.0); Monocytes % 13.1 % (1.7-12.7); Neutrophils % 80.4 % (38.7-73.9); Platelet Count 208 T/CUMM (130-400); Red Cell Distribution Width 19.5 % (9.3-17.3); White Blood Count 10.9 T/CUMM (4-12)
[2020-06-23 05:50] LABS: Calcium 8.1 MG/DL (8.5-10.1); Osmolality,Calculated 258.8 MOS/KG (273-304); Potassium 3.8 MMOL/L (3.5-5.1)
[2020-06-23 06:55] LABS: Anisocytosis 1+; Eosinophils 2 % (0-10); Lymphocytes 7 % (20-55); Macrocytosis 1+; Platelet Estimate Normal; Segmented Neutrophils 79 % (50-85); Total Cells Counted 100
[2020-06-23] MEDS: PANTOPRAZOLE 40 MG TABLET PO SCH (09:04)
[2020-06-23] MEDS: FUROSEMIDE 40 MG/4 ML VIAL IV SCH ×2 (10:15→15:47)
[2020-06-23] MEDS ORDERED: ALBUMIN 25% 50 GM/200 ML VIAL IV ONE (11:55)
[2020-06-24 04:38] LABS: Albumin 2.5 G/DL (3.4-5.0); Bilirubin,Total 2.7 MG/DL (0.2-1.0); Calcium 8.4 MG/DL (8.5-10.1); Osmolality,Calculated 261.5 MOS/KG (273-304); Potassium 3.4 MMOL/L (3.5-5.1); Total Protein 5.9 G/DL (6.4-8.2)
[2020-06-24] MEDS ORDERED: TUBERCULIN SKIN TEST 0.1 ML SYRINGE INTRADERM ONE (09:18)
[2020-06-24] MEDS: PANTOPRAZOLE 40 MG TABLET PO SCH (09:31)
[2020-06-24] MEDS: FUROSEMIDE 40 MG/4 ML VIAL IV SCH ×2 (09:31→15:23)
[2020-06-24] MEDS: SPIRONOLACTONE 50 MG TABLET PO SCH (09:31)
[2020-06-24] MEDS ORDERED: POTASSIUM CHLORIDE 20 MEQ TABLET PO ONE (14:00)
[2020-06-25 06:40] LABS: Bilirubin,Total 2.5 MG/DL (0.2-1.0); Calcium 8.2 MG/DL (8.5-10.1); Osmolality,Calculated 261.7 MOS/KG (273-304); Potassium 3.5 MMOL/L (3.5-5.1); Total Protein 5.2 G/DL (6.4-8.2)
[2020-06-25] MEDS: FUROSEMIDE 40 MG/4 ML VIAL IV SCH ×2 (10:43→15:44)
[2020-06-25] MEDS: SPIRONOLACTONE 50 MG TABLET PO SCH (10:44)
[2020-06-25] MEDS: PANTOPRAZOLE 40 MG TABLET PO SCH (10:46)
[2020-06-26 05:57] LABS: Albumin 1.9 G/DL (3.4-5.0); Bilirubin,Total 3.2 MG/DL (0.2-1.0); Calcium 8.4 MG/DL (8.5-10.1); Osmolality,Calculated 260.8 MOS/KG (273-304); Potassium 3.7 MMOL/L (3.5-5.1); Total Protein 5.6 G/DL (6.4-8.2)
[2020-06-26] MEDS ORDERED: SODIUM CHLORIDE 0.9% 250 ML IV ONE (07:47)
[2020-06-26] MEDS: FUROSEMIDE 40 MG/4 ML VIAL IV SCH ×2 (10:31→15:53)
[2020-06-26] MEDS: PANTOPRAZOLE 40 MG TABLET PO SCH (10:32)
[2020-06-26] MEDS: SPIRONOLACTONE 50 MG TABLET PO SCH (10:32)
[2020-06-26] MEDS: busPIRone 5 MG TABLET PO SCH (20:29)
[2020-06-27] MEDS: busPIRone 5 MG TABLET PO SCH ×2 (07:43→10:18)
[2020-06-27] MEDS: SPIRONOLACTONE 50 MG TABLET PO SCH ×2 (07:43→10:17)
[2020-06-27] MEDS: FUROSEMIDE 40 MG/4 ML VIAL IV SCH (07:43)
[2020-06-27] MEDS: PANTOPRAZOLE 40 MG TABLET PO SCH ×2 (07:44→10:18)
[2020-06-27 11:50] VITALS: BP 134/75
== END 2020-06-27 13:30 | disposition swing bed (61) | DRG 844 ==
LOC: N.EDINP 09:06 → N.ED 09:06 → N.3E 12:44 → SUATTDRO 06-22 14:36
PROVIDERS: ADMIT Internal Medicine; ATTEND Internal Medicine